=== PATIENT | male | born 1955 | race Caucasian/White ===

== ENCOUNTER 2018-03-01 20:55 | Emergency (ER) | payer BC, SELFPAY ==
[2018-03-01 21:03] VITALS: BP 119/81; PULSE 76; RESP 16; TEMP 37.2; O2SAT 96; BMI 22.9
--- NOTE | 2018-03-01 21:55 | PC.NURSE ---
pt reports passing a kidney stone on friday. since then pt experiencing increasing full body aches that are worse at night. reports it feels like someone is stabbing me in the shoulders with a knife and having a hard time sleeping. Pt denies fever, N/V/D, night sweats, LOC.
[2018-03-01 22:19] LABS: Bacteria Urine Few (2-10); RBC Urine 0-1/HPF (0-5/HPF); Squamous Epithelial Cell Urine 0-1 /HPF; WBC Urine 1-5/HPF (0-5/HPF)
[2018-03-01 22:20] LABS: Calcium Oxalate Crystals Urine Occasional; Mucus Urine 1+ (Negative)
[2018-03-01 22:22] LABS: Culture Indicated Urine Cult Not Indicated
[2018-03-01 22:25] VITALS: BP 114/71; PULSE 75; RESP 16; O2SAT 98
[2018-03-01 22:39] LABS: Add Manual Diff / Slide Review NO; Basophils Percent Auto 0.6 % (0-2); Hematocrit 38.5 % (41-53); Hemoglobin 13.2 g/dL (13.5-17.5); Lymphocytes Percent Auto 19.4 % (25-40); Mean Corpuscular HGB Conc 34.3 % (30-36); Mean Corpuscular Hemoglobin 32.8 PG (26-34); Mean Corpuscular Volume 95.8 fL (80-100); Monocytes Percent Auto 8.5 % (3-14); Neutrophils Absolute Auto 5300 /uL (3000-5900); Neutrophils Percent Auto 68.5 % (50-75); Platelet Count 351 X10^3/uL (150-400); Red Blood Cell Count 4.02 X10^6/uL (4.5-5.9); Red Cell Distribution Width 13.9 % (11.6-14.8); White Blood Cell Count 7.7 X10^3/uL (4.5-11.0)
[2018-03-01 22:49] LABS: Alanine Aminotransferase 202 IU/L (21-72); Albumin 3.4 g/dL (3.5-5.0); Albumin Globulin Ratio 1.3 (1.0-2.8); Alkaline Phosphatase 85 U/L (38-126); Aspartate Aminotransferase 163 IU/L (17-59); BUN Creatinine Ratio 27.5 (6-22); Bilirubin Total 0.3 mg/dL (0.2-1.3); Blood Urea Nitrogen 22 mg/dL (9-20); Calcium 8.8 mg/dL (8.4-10.2); Carbon Dioxide 28 mmol/L (22-32); Chloride 105 mmol/L (98-107); Estimated Glomerular Filt Rate > 60.0 mL/min (>60); Globulin 2.6 g/dL (1.7-4.1); Glucose 104 mg/dL (80-110); HEMOLYSIS < 15 (0-50); Potassium 4.1 mmol/L (3.4-5.1); Sodium 139 mmol/L (137-145)
--- NOTE | 2018-03-01 23:07 | ED_ITS ---
HPI - Male Genitourinary General Chief complaint: Urogenital-Male Stated complaint: STATES SUDDEN ONSET JOINT PAIN ALL OVER Time Seen by Provider: 03/01/18 22:36 Source: patient Mode of arrival: ambulatory Limitations: no limitations History of Present Illness HPI Narrative: The patient is a 63-year-old male who presents with overall body aches for the last 4 days. As he has been taking 2 Tylenol and ibuprofen twice a day for the last 2 days it does not seem to be helping. He denies any back pain abdominal pain nausea vomiting cough or painful urination. He states that he did have a kidney stone and passed it February 04. He overall was better from that. He was up in the [place]. He denies any rashes no tick bites, no documented fever. He does have a mild headache but no neck pain Related Data Previous Rx's Medication Instructions Recorded ketoconazole 2 % TOPICAL BID #25 gm 08/11/17 Allergies Allergy/AdvReac Type Severity Reaction Status Date / Time latex [LATEX] Allergy Mild Verified 03/01/18 21:09 Review of Systems Review of Systems All systems reviewed & are unremarkable except as noted in HPI and below Constitutional Reports body ache(s), Denies chills, Reports fatigue, Denies fever(s), Reports malaise, Denies night sweats and Denies poor appetite Eyes Denies change in vision, Denies eye discharge, Denies irritation and Denies loss of vision ENT Ears, Nose, Mouth, and Throat: Denies change in voice, Denies neck pain and Denies sore throat Cardiovascular Denies chest pain, Denies irregular heart rhythm, Denies lightheadedness, Denies palpitations, Denies dyspnea, Denies dyspnea on exertion and Denies orthopnea Respiratory Denies cough, Denies dyspnea, Denies dyspnea on exertion and Denies wheezing Gastrointestinal Gastrointestinal: Denies abdominal pain, Denies change in bowel habits, Denies diarrhea, Denies nausea and Denies vomiting Genitourinary Denies hematuria, Denies flank pain, Denies urinary incontinence and Denies urinary urgency Musculoskeletal Reports as per HPI and Denies neck pain Integumentary/Breasts Denies pruritus, Denies erythema, Denies rash and Denies wounds Neurologic Denies loss of vision Endocrine Reports fatigue and Denies palpitations Allergic/Immunologic Denies wheezing [facility] Medical History GERD (gastroesophageal reflux disease) (Chronic) Hearing deficit (Chronic) Hearing loss (Chronic ~195) Rosacea (Chronic) Skin cancer (Chronic ~1989) Measles (Resolved) Surgical History History of back surgery (Chronic) Status post knee surgery (06/03/16) Family History Brother Age: 65 Diabetes mellitus Grandfather Cancer Grandmother MS (multiple sclerosis) Father No problems noted. Mother No problems noted. Social History marital status: Smoking Status: Never smoker alcohol intake: never substance use type: does not use Exam Initial Vital Signs Initial Vital Signs: Vital Signs Temperature 98.9 F 03/01/18 21:03 Pulse Rate 76 03/01/18 21:03 Respiratory Rate 16 03/01/18 21:03 Blood Pressure 119/81 H 03/01/18 21:03 Pulse Oximetry 96 03/01/18 21:03 Const General: cooperative, healthy appearing, comfortable and No acute distress Orientation: alert, awake and oriented x3 HENMT Head: normal to inspection and normocephalic Nose: external nose normal Face and sinus: normal facial exam Eyes General: appearance normal, both eyes and all related structures Pupils: PERRL EOM: EOM intact bilaterally Neck Neck: normal visual inspection, trachea midline, No lymphadenopathy, No midline deformity and No JVD Chest Chest: normal inspection of the chest Resp Effort & Inspection: normal respiratory effort Auscultation: clear to auscultation bilaterally, no egophony, no rales, no rhonchi and no wheezes Cardio Rate: regular rate Rhythm: regular rhythm Heart Sounds: S1 normal and S2 normal GI Inspection: non-distended Palpation: soft, no hepatosplenomegaly, No guarding, No pulsatile mass and No tender Auscultation: normal bowel sounds Back/Spine/Pelvis Back: normal to inspection Skin General: no rashes or lesions noted, No ecchymosis, No petechiae, No purpura and No pallor Neuro General: alert, awake and oriented x3 Cranial Nerves: CN's II-XI intact bilaterally Speech: speech normal Gait: normal gait Extrem General: normal to inspection and full ROM Right upper extremity: normal to inspection Left upper extremity: normal to inspection Right lower extremity: normal to inspection Left lower extremity: normal to inspection Course Orders Ordered: ED Orders 03/01/18 22:03 Acetaminophen Stat Lactate (Lactic Acid) Stat Salicylate Stat 03/01/18 22:08 Urine Microscopic Stat 03/01/18 22:30 CMP [Comprehensive Metabolic Panel] Stat Complete Blood Count AUTO DIFF Stat 03/01/18 22:33 Monotest Stat Procalcitonin Stat 03/01/18 23:27 Blood Culture Stat 03/02/18 00:10 US abdomen complete Stat Discontinued Medications Sodium Chloride (Normal Saline 0.9%) 1,000 mls @ 1,000 mls/hr IV BOLUS ONE Stop: 03/02/18 00:06 Last Infusion: 03/02/18 01:35 Dose: 0 mls/hr Admin: 03/01/18 23:46 Dose: 1,000 mls/hr Ketorolac Tromethamine (Toradol) 30 mg IV NOW ONE Stop: 03/01/18 23:45 Last Admin: 03/01/18 23:47 Dose: 30 mg Vital Signs - 8 hr 03/01/18 22:25 03/02/18 01:40 Temperature 98.0 F Pulse Rate 75 55 L Respiratory Rate 16 18 Blood Pressure 122/92 H Blood Pressure [Left Arm] 114/71 Pulse Oximetry 98 97 MDM - Male Genitourinary Medical Records Attestation: I reviewed the patient's medical records. Lab Data Attestation: I reviewed the patient's lab results. Result diagrams: 03/01/18 22:30 03/01/18 22:30 Lab Results 03/01/18 03/01/18 03/01/18 Range/Units 22:03 22:03 22:08 WBC (4.5-11.0) X10^3/uL RBC (4.5-5.9) X10^6/uL Hgb (13.5-17.5) g/dL Hct (41-53) % MCV (80-100) fL MCH (26-34) PG MCHC (30-36) % RDW (11.6-14.8) % Plt Count (150-400) X10^3/uL Neut % (Auto) (50-75) % Lymph % (Auto) (25-40) % Pickett % (Auto) (3-14) % Eos % (Auto) (2-4) % Baso % (Auto) (0-2) % Neut # (Auto) (3972-5825) /uL Sodium (137-145) mmol/L Potassium (3.4-5.1) mmol/L Chloride (98-107) mmol/L Carbon Dioxide (22-32) mmol/L BUN (9-20) mg/dL Creatinine (0.66-1.25) mg/dL Estimated GFR (>60) mL/min BUN/Creatinine Ratio (6-22) Glucose (80-110) mg/dL Lactate 0.7 (0.7-2.1) mmol/L Calcium (8.4-10.2) mg/dL Total Bilirubin (0.2-1.3) mg/dL AST (17-59) IU/L ALT (21-72) IU/L Alkaline Phosphatase (38-126) U/L Total Protein (6.3-8.2) g/dL Albumin (3.5-5.0) g/dL Globulin (1.7-4.1) g/dL Albumin/Globulin Ratio (1.0-2.8) Procalcitonin (<0.5) ng/mL Urine RBC 0-1/hpf (0-5/HPF) Urine WBC 1-5/hpf (0-5/HPF) Ur Squamous Epith Cells 0-1 /hpf Calcium Oxalate Crystal Occasional H (None) Urine Bacteria Few (2-10) H (None) Urine Mucus 1+ H (Negative) Ur Culture Indicated? Cult not indicated Micro UA Comment Not Reportable Salicylates < 1.0 (<20) mg/dL Acetaminophen < 10 L (10-30) ug/mL Monoscreen (Negative) 03/01/18 03/01/18 03/01/18 Range/Units 22:30 22:30 22:33 WBC 7.7 (4.5-11.0) X10^3/uL RBC 4.02 L (4.5-5.9) X10^6/uL Hgb 13.2 L (13.5-17.5) g/dL Hct 38.5 L (41-53) % MCV 95.8 (80-100) fL MCH 32.8 (26-34) PG MCHC 34.3 (30-36) % RDW 13.9 (11.6-14.8) % Plt Count 351 (150-400) X10^3/uL Neut % (Auto) 68.5 (50-75) % Lymph % (Auto) 19.4 L (25-40) % Pickett % (Auto) 8.5 (3-14) % Eos % (Auto) 3.0 (2-4) % Baso % (Auto) 0.6 (0-2) % Neut # (Auto) 5300 (8650-2349) /uL Sodium 139 (137-145) mmol/L Potassium 4.1 (3.4-5.1) mmol/L Chloride 105 (98-107) mmol/L Carbon Dioxide 28 (22-32) mmol/L BUN 22 H (9-20) mg/dL Creatinine 0.80 (0.66-1.25) mg/dL Estimated GFR > 60.0 (>60) mL/min BUN/Creatinine Ratio 27.5 H (6-22) Glucose 104 (80-110) mg/dL Lactate (0.7-2.1) mmol/L Calcium 8.8 (8.4-10.2) mg/dL Total Bilirubin 0.3 (0.2-1.3) mg/dL AST 163 H (17-59) IU/L ALT 202 H (21-72) IU/L Alkaline Phosphatase 85 (38-126) U/L Total Protein 6.0 L (6.3-8.2) g/dL Albumin 3.4 L (3.5-5.0) g/dL Globulin 2.6 (1.7-4.1) g/dL Albumin/Globulin Ratio 1.3 (1.0-2.8) Procalcitonin < 0.05 (<0.5) ng/mL Urine RBC (0-5/HPF) Urine WBC (0-5/HPF) Ur Squamous Epith Cells Calcium Oxalate Crystal (None) Urine Bacteria (None) Urine Mucus (Negative) Ur Culture Indicated? Micro UA Comment Salicylates (<20) mg/dL Acetaminophen (10-30) ug/mL Monoscreen Negative (Negative) Imaging Data US - abdomen: Radiologist's impression: No acute finding left nephrolithiasis. No hydronephrosis. Gallbladder: Distended no stones non thickened wall no karlene cholecystic fluid MDM Narrative Medical decision making narrative: The patient has overall body aches and joints for the last 4 days, no documented fever but he has been taking Tylenol and ibuprofen as prescribed. Only abnormality is elevated liver enzymes. Tylenol level is negative and it sounds as though he has been taking Tylenol appropriately. He has no right upper quadrant pain. Ultrasound is negative gallbladder is within normal limits bilirubin is negative. No leukocytosis no elevated lactate or procalcitonin. Pickett screen negative. She is worried about Lyme disease. He denies ever being bit by a tick there was never any rash. At this time I recommend supportive care and close outpatient follow-up with repeat liver enzymes. I discussed all findings with the patient, Education has been performed regarding treatment plan, diagnosis, warning signs and symptoms and all concerns have been addressed. Verbally agree with and understood all of the above. Discharge Plan Departure Patient Disposition: Home, Self-Care Clinical Impression: Acute viral syndrome, Elevated liver enzymes, Joint pain Discharge Date/Time: 03/02/18 01:41 Interventions: ED Discharge Assessment Last Done: 03/02/18 01:40 Instructions: DI for Viral Syndrome Activity Restrictions/Additional Instructions: *You have been diagnosed with viral syndrome, joint pain, elevated liver enzymes *What to do: Need to have liver enzymes rechecked this week with primary care provider. May also require more testing and evaluation of joint pain. At this time no antibiotics or a bacterial infection identified. *Continue to take medications as directed -ibuprofen/Motrin/Advil 600 mg every 6 hr or 800 mg every 8 hr -avoid Tylenol/acetaminophen-this can elevated liver enzymes *Follow up with your primary care provider in 2-3 days *Return to ER if you should have increasing pain, fever more than 100.4, or any new, worsening or concerning symptoms Prescriptions: No Action ketoconazole 2 % cream 2 % Topical BID Qty: 25 RF: 1 Referrals: Anam Quiles MD [Primary Care Provider] -
[2018-03-01 23:21] LABS: Monotest Negative (Negative)
[2018-03-01 23:36] LABS: Lactate (Lactic Acid) 0.7 mmol/L (0.7-2.1)
[2018-03-01 23:37] LABS: Acetaminophen < 10 ug/mL (10-30)
[2018-03-01 23:40] LABS: Salicylate < 1.0 mg/dL (<20)
[2018-03-01 23:41] LABS: Procalcitonin < 0.05 ng/mL (<0.5)
[2018-03-01] MEDS: SODIUM CHLORIDE 0.9% 1,000 ML 1000 ML IV (23:46)
[2018-03-01] MEDS: KETOROLAC 60 MG/2 ML VIAL 30 MG IV (23:47)
--- NOTE | 2018-03-02 00:10 | DI.US.S_ITS ---
PROCEDURE: US ABDOMEN COMPLETE INDICATIONS: elevated liver enzymes, recent kidney stones TECHNIQUE: Real-time scanning was performed of the abdominal and retroperitoneal organs, with image documentation. COMPARISON: [facility], US, RENAL COMPLETE, 01/28/2013, 8:38. FINDINGS: Preliminary report by straightedge worker radiology Liver: Liver is normal in size and homogeneous in echotexture. Gallbladder: Gallbladder is clear with normal wall thickness. Biliary ducts: Intrahepatic bile ducts are non-dilated. Extrahepatic bile duct caliber measures 6 mm. Normal is 6-7 mm or less in diameter, or 10 mm or less post-cholecystectomy. Pancreas: Pancreas is obscured by bowel gas Spleen: Spleen is normal in size and homogeneous in echotexture. Kidneys: Kidneys are normal in size and echotexture. Right kidney measures 10.7 cm long; left kidney measures 10.3 cm long. No hydronephrosis. There are apparent calcifications measuring 11 mm and 14 mm in the mid and superior aspect of the left kidney. No solid masses. Right upper pole cyst on prior exams not apparent. Aorta: Visualized aorta is normal in caliber at less than 3 cm. proximal aorta is obscured. Iliacs: Iliac vessels are obscured by bowel gas IVC: Nonvisualized secondary to bowel gas Miscellaneous: No free abdominal fluid. IMPRESSION: 1. Exam is limited by degree of bowel gas present. 2. No apparent hepatobiliary abnormality. 3. Probable left nephrolithiasis. No hydronephrosis. Findings are concordant with the preliminary report. Dictated by: Flynn Jonas M.D. on 03/02/2018 at 8:24 Approved by: Flynn Jonas M.D. on 03/02/2018 at 8:30
[2018-03-02 01:40] VITALS: BP 122/92; PULSE 55; RESP 18; TEMP 36.7; O2SAT 97
== END 2018-03-02 01:41 | disposition home or self-care (01) ==
PROVIDERS: Emergency Provider Emergency Medicine; Family Provider Family Medicine; PCP Family Medicine
DX: B34.9 Viral infection, unspecified (principal); R74.8 Abnormal levels of other serum enzymes; M25.50 Pain in unspecified joint
CPT/HCPCS: 36415; 36591; 76700; 80053; 80329; 81003; 81015; 83605; 84145; 85025; 86318; 87040; 96361; 96374; 99283; 99284; G0480; J1885

== ENCOUNTER → 2018-03-04 12:30 | Outpatient (CLI) | payer BC, SELFPAY ==
[2018-03-04 14:02] LABS: Erythrocyte Sedimentation Rate 40 MM/HR (0-15)
[2018-03-04 14:09] LABS: Alanine Aminotransferase 171 IU/L (21-72); Albumin 3.8 g/dL (3.5-5.0); Albumin Globulin Ratio 1.3 (1.0-2.8); Alkaline Phosphatase 104 U/L (38-126); Aspartate Aminotransferase 77 IU/L (17-59); BUN Creatinine Ratio 18.8 (6-22); Bilirubin Total 0.4 mg/dL (0.2-1.3); Blood Urea Nitrogen 15 mg/dL (9-20); C-Reactive Protein Quant 1.2 mg/dL (<1.0); Carbon Dioxide 24 mmol/L (22-32); Chloride 106 mmol/L (98-107); Creatine Kinase 51 U/L (55-170); Estimated Glomerular Filt Rate > 60.0 mL/min (>60); Glucose 102 mg/dL (80-110); HEMOLYSIS < 15 (0-50); Sodium 139 mmol/L (137-145); Total Protein 6.8 g/dL (6.3-8.2)
[2018-03-04 14:11] LABS: Rheumatoid Factor < 8.6 IU/mL (<12.0)
[2018-03-04 16:45] LABS: Hepatitis B Surface Antigen NEGATIVE s/c (NEGATIVE)
[2018-03-04 17:06] LABS: Hep C Virus Ab w/Reflex Quant NEGATIVE s/c (NEGATIVE)
[2018-03-06 13:00] LABS: Aldolase 6.7 U/L (< 8.2)
[2018-03-06 13:59] LABS: Hepatitis B Core Antibody Nonreactive (Nonreactive)
[2018-03-06 14:01] LABS: Hepatitis B Surf Ab Qualitativ Nonreactive (Nonreactive)
[2018-03-07 01:51] LABS: ANA Screen, IFA Negative (Negative)
== END ==
PROVIDERS: Family Provider Family Medicine; PCP Family Medicine; Visit Provider Internal Medicine
DX: M79.1 Myalgia (principal); R94.5 Abnormal results of liver function studies; M25.50 Pain in unspecified joint; Z12.5 Encounter for screening for malignant neoplasm of prostate; Z13.220 Encounter for screening for lipoid disorders; Z13.1 Encounter for screening for diabetes mellitus
CPT/HCPCS: 36415; 80053; 82085; 82550; 85651; 86038; 86140; 86430; 86704; 86706; 86803; 87340

== ENCOUNTER → 2018-03-11 11:12 | Outpatient (CLI) | payer BC, SELFPAY ==
[2018-03-11 12:15] LABS: Chloride 105 mmol/L (98-107); HEMOLYSIS < 15 (0-50)
[2018-03-11 12:17] LABS: Add Manual Diff / Slide Review NO; Basophils Percent Auto 0.7 % (0-2); Eosinophils Percent Auto 0.9 % (2-4); Hematocrit 42.1 % (41-53); Hemoglobin 14.2 g/dL (13.5-17.5); Lymphocytes Percent Auto 14.1 % (25-40); Mean Corpuscular HGB Conc 33.8 % (30-36); Mean Corpuscular Hemoglobin 32.3 PG (26-34); Mean Corpuscular Volume 95.5 fL (80-100); Monocytes Percent Auto 8.2 % (3-14); Neutrophils Absolute Auto 7800 /uL (3000-5900); Neutrophils Percent Auto 76.1 % (50-75); Platelet Count 529 X10^3/uL (150-400); Red Cell Distribution Width 13.9 % (11.6-14.8); White Blood Cell Count 10.2 X10^3/uL (4.5-11.0)
[2018-03-11 12:18] LABS: Alanine Aminotransferase 289 IU/L (21-72); Albumin 4.1 g/dL (3.5-5.0); Albumin Globulin Ratio 1.5 (1.0-2.8); Alkaline Phosphatase 130 U/L (38-126); Aspartate Aminotransferase 141 IU/L (17-59); BUN Creatinine Ratio 22.5 (6-22); Bilirubin Total 0.5 mg/dL (0.2-1.3); Blood Urea Nitrogen 18 mg/dL (9-20); C-Reactive Protein Quant 1.1 mg/dL (<1.0); Calcium 9.3 mg/dL (8.4-10.2); Carbon Dioxide 24 mmol/L (22-32); Cholesterol 197 mg/dL (140-199); Estimated Glomerular Filt Rate > 60.0 mL/min (>60); Globulin 2.8 g/dL (1.7-4.1); Glucose 107 mg/dL (80-110); HDL Cholesterol 52 mg/dL (40-60); LDL Cholesterol Calculated 124 mg/dL (<100); Potassium 3.9 mmol/L (3.4-5.1); Sodium 139 mmol/L (137-145); Total Protein 6.9 g/dL (6.3-8.2); Triglycerides 104 mg/dL (35-150)
[2018-03-11 12:22] LABS: Rheumatoid Factor < 8.6 IU/mL (<12.0)
[2018-03-11 12:41] LABS: Erythrocyte Sedimentation Rate 43 MM/HR (0-15)
[2018-03-11 12:47] LABS: Prostate Specific Antigen Scrn 2.29 ng/mL (0.1-4.0); TSH w/ Reflex to FT4 0.91 uIU/mL (0.47-4.68)
[2018-03-13 13:54] LABS: CCP Antibody (IgG) < 16 Units (< 20)
== END ==
PROVIDERS: PCP Family Medicine; Visit Provider Family Medicine
DX: M25.50 Pain in unspecified joint (principal); Z12.5 Encounter for screening for malignant neoplasm of prostate; Z13.1 Encounter for screening for diabetes mellitus; Z13.220 Encounter for screening for lipoid disorders
CPT/HCPCS: 36415; 80053; 80061; 83516; 84443; 85025; 85651; 86140; 86430; G0103

== ENCOUNTER → 2018-03-18 16:02 | Outpatient (CLI) | payer BC, MEDICARE, SELFPAY ==
[2018-03-18 16:53] LABS: Alanine Aminotransferase 173 IU/L (21-72); Albumin 3.8 g/dL (3.5-5.0); Albumin Globulin Ratio 1.5 (1.0-2.8); Alkaline Phosphatase 126 U/L (38-126); Aspartate Aminotransferase 42 IU/L (17-59); Bilirubin Total 0.3 mg/dL (0.2-1.3); Bilirubin Unconjugated 0.1 mg/dL (0.0-1.1); Globulin 2.6 g/dL (1.7-4.1); HEMOLYSIS < 15 (0-50); Total Protein 6.4 g/dL (6.3-8.2)
[2018-03-18 16:57] LABS: Alanine Aminotransferase 171 IU/L (21-72); Albumin 3.8 g/dL (3.5-5.0); Albumin Globulin Ratio 1.4 (1.0-2.8); Alkaline Phosphatase 127 U/L (38-126); Aspartate Aminotransferase 43 IU/L (17-59); BUN Creatinine Ratio 26.3 (6-22); Bilirubin Total 0.3 mg/dL (0.2-1.3); Blood Urea Nitrogen 21 mg/dL (9-20); Calcium 9.8 mg/dL (8.4-10.2); Carbon Dioxide 29 mmol/L (22-32); Chloride 103 mmol/L (98-107); Estimated Glomerular Filt Rate > 60.0 mL/min (>60); Globulin 2.7 g/dL (1.7-4.1); Glucose 100 mg/dL (80-110); HEMOLYSIS < 15 (0-50); Potassium 4.7 mmol/L (3.4-5.1); Sodium 142 mmol/L (137-145); Total Protein 6.5 g/dL (6.3-8.2)
[2018-03-18 16:58] LABS: C-Reactive Protein Quant < 0.5 mg/dL (<1.0)
[2018-03-18 17:37] LABS: Erythrocyte Sedimentation Rate 36 MM/HR (0-15)
[2018-03-18 17:55] LABS: Add Manual Diff / Slide Review NO; Basophils Percent Auto 0.8 % (0-2); Eosinophils Percent Auto 0.2 % (2-4); Hematocrit 41.7 % (41-53); Hemoglobin 14.2 g/dL (13.5-17.5); Lymphocytes Percent Auto 14.2 % (25-40); Mean Corpuscular Hemoglobin 32.2 PG (26-34); Mean Corpuscular Volume 94.8 fL (80-100); Monocytes Percent Auto 7.4 % (3-14); Neutrophils Absolute Auto 8500 /uL (3000-5900); Neutrophils Percent Auto 77.4 % (50-75); Platelet Count 508 X10^3/uL (150-400); Red Cell Distribution Width 13.9 % (11.6-14.8)
[2018-03-18 17:57] LABS: White Blood Cell Count 10.9 X10^3/uL (4.5-11.0)
[2018-03-21 07:32] LABS: Ceruloplasmin 28 mg/dL (18-36)
== END ==
PROVIDERS: PCP Family Medicine; Visit Provider Internal Medicine
DX: R74.8 Abnormal levels of other serum enzymes (principal); M25.50 Pain in unspecified joint
CPT/HCPCS: 36415; 80053; 80076; 82390; 82728; 85025; 85651; 86140

== ENCOUNTER 2018-05-08 12:02 | Emergency (ER) | payer BC, SELFPAY ==
[2018-05-08 12:16] VITALS: BP 122/76; PULSE 77; RESP 20; TEMP 36.5; O2SAT 98; BMI 23.6
--- NOTE | 2018-05-08 12:44 | ED.FALL ---
HPI - Fall <Shruthi Husain PA-C - Last Filed: 05/08/18 17:58> General Chief Complaint: Trauma Stated Complaint: FELL OFF 5FT LADDER,CHEST,HEAD,RT WRIST PAIN Time Seen by Provider: 05/08/18 12:40 Source: patient Mode of arrival: ambulatory Limitations: no limitations History of Present Illness HPI Narrative: This 63-year-old male comes in from walk-in clinic due to right upper extremity and sternal pain after a fall off a ladder yesterday. He states that he was up about 5 ft on a ladder in his garage getting a cardiac down when he fell backwards. He states that he fell mainly onto his right side shoulder, hand and trunk area. He states that he does not think he hit his head and definitely did not lose consciousness. He denies headache, vision change, nausea or vomiting. He denies any pain in his neck or difficulty with movement. He states that he went to walk-in clinic due to pain in his shoulder and they sent him here. He states that right after he fell, he kind of had the wind knocked out of him and his ribs hurt, but this got better in a few minutes. He states his right shoulder was a little bit sore but mostly went about his day. Last night, the shoulder pain got worse and he had difficulty sleeping due to the pain. Today, he states that the pain in his shoulder it has persisted. He also has pain in his sternum especially noticeable with laughing, sneezing, etc. He states his hand is also sore. His 2nd and 3rd fingers feel just a little bit numb and tingly at the tips, but able to move them normally. He denies any other paresthesias in the extremities. He denies any weakness in the extremities and states that it is pain that is keeping him from movement in the right shoulder. He denies any dyspnea. He denies any bowel or bladder dysfunction since his fall. He notes that he had a clavicle fracture in childhood, does not remember for sure which side, thinks left, and that his collar bones are not symmetric at baseline. Related Data Home Medications Medication Instructions Recorded Confirmed Turmeric Curcumin 4 - 6 cap PO DAILY 05/08/18 05/08/18 methotrexate sodium See Label Instructions .ROUTE 05/08/18 05/08/18 .COMPLEX prednisone 20 mg tablet 20 mg PO DAILY 05/08/18 05/08/18 Allergies Allergy/AdvReac Type Severity Reaction Status Date / Time latex [LATEX] Allergy Mild Verified 05/08/18 12:20 Review of Systems <Shruthi Husain PA-C - Last Filed: 05/08/18 17:58> Review of Systems All systems reviewed & are unremarkable except as noted in HPI and below Exam <Shruthi Husain PA-C - Last Filed: 05/08/18 17:58> Narrative Exam Narrative: GENERAL APPEARANCE: Patient sitting comfortably, in no distress. HEENT: PERRL, EOMI, normal ear canals, nasal mucosa and oropharynx NECK: Supple LUNGS: Clear to auscultation bilaterally. CHEST: Tender to palpation through the sternum, no tenderness localized over the ribs anteriorly or laterally HEART: Rate and rhythm regular without murmur, normal S1 and S2, no S3 or S4. ABDOMEN: Soft, NT, ND, + BS x 4 quadrants NEUROLOGIC: Alert and oriented, normal speech, gait and coordination. MUSCULOSKELETAL: Full Csp AROM without any point tenderness over the cervical spine. He is somewhat tender over the midthoracic spine and paraspinal region on the right. Also tender throughout the right upper trapezius and posterior lateral right shoulder bony prominences. No tenderness over the right clavicle. The right clavicle is more prominent than the left. Limited range of motion of the right shoulder secondary to tenderness. No tenderness over the right elbow, full range of motion. No tenderness over the right upper arm or forearm, nor the wrist where he has full range of motion. He is tender over the thenar eminence on the right hand. He he has full range of motion of all of the fingers with some tenderness. DERMATOLOGIC: Bandaged abrasion noted on the right elbow. Ecchymoses noted on the right hand. No ecchymoses or abrasions on the head, neck or trunk noted. NEUROVASCULAR: Right radial and ulnar pulses 2+, sensation in the fingers is grossly intact Initial Vital Signs Initial Vital Signs: Vital Signs Temperature 97.7 F 05/08/18 12:16 Pulse Rate 77 05/08/18 12:16 Respiratory Rate 20 05/08/18 12:16 Blood Pressure 122/76 05/08/18 12:16 Pulse Oximetry 98 05/08/18 12:16 <Patrice Banerjee DO - Last Filed: 05/08/18 18:20> Initial Vital Signs Initial Vital Signs: Vital Signs Temperature 97.7 F 05/08/18 12:16 Pulse Rate 77 05/08/18 12:16 Respiratory Rate 20 05/08/18 12:16 Blood Pressure 122/76 05/08/18 12:16 Pulse Oximetry 98 05/08/18 12:16 Course <Shruthi Husain PA-C - Last Filed: 05/08/18 17:58> Additional Information: No acute fracture is found on x-rays today. Patient declines any pain medication aside from Tylenol. He was given a sling for comfort and range of motion exercises reviewed (he is very familiar with these from previous physical therapy on his shoulder). He was advised follow-up with his PCP next week and agreed to return if any worsening or new symptoms in the interim Orders Ordered: ED Orders 05/08/18 13:04 XR hand RT min 3V Stat XR shoulder RT min 2V Stat XR sternum min 2V Stat XR thoracic spine 3V Stat 05/08/18 13:19 EKG-12 Lead Stat Discontinued Medications Acetaminophen (Tylenol) 650 mg PO NOW ONE Stop: 05/08/18 13:05 Last Admin: 05/08/18 13:31 Dose: 650 mg Vital Signs - 8 hr 05/08/18 12:16 Temperature 97.7 F Pulse Rate 77 Respiratory Rate 20 Blood Pressure 122/76 Pulse Oximetry 98 <Patrice Banerjee DO - Last Filed: 05/08/18 18:20> Orders Ordered: ED Orders 05/08/18 13:04 XR hand RT min 3V Stat XR shoulder RT min 2V Stat XR sternum min 2V Stat XR thoracic spine 3V Stat 05/08/18 13:19 EKG-12 Lead Stat Discontinued Medications Acetaminophen (Tylenol) 650 mg PO NOW ONE Stop: 05/08/18 13:05 Last Admin: 05/08/18 13:31 Dose: 650 mg Vital Signs - 8 hr 05/08/18 12:16 Temperature 97.7 F Pulse Rate 77 Respiratory Rate 20 Blood Pressure 122/76 Pulse Oximetry 98 MDM - Fall <NOMAN Licea Last Filed: 05/08/18 17:58> Imaging Data thoracic: Radiologist's impression: [address] [address] XRay Report Signed Patient: Kameron JaureguiMR#: [id number] : 3At:[id number] Age/Sex: 63 / MDate of Service: 05/08/18 Loc: ED Accession Number: [id number] Procedure: XR thoracic spine 3V Ordering Provider: Shruthi Husain P.A-C PROCEDURE: XR THORACIC SPINE 3V INDICATIONS: fall yesterday, pain TECHNIQUE: 3 views of the thoracic spine were acquired. COMPARISON: None. FINDINGS: Bones: On the lateral views, the cervicothoracic junction is adequately visualized and the alignment through this region is within normal limits. The vertebral body heights are within normal limits throughout the thoracic spine without evidence to suggest acute compression fracture. The bone mineralization is within normal limits. Mild to moderate degenerative changes of the thoracic spine are evident with areas of disc height loss and disc osteophyte complexes. Soft tissues: The imaged overlying soft tissues of the chest are within normal limits. However, there may be calcification involving the left kidney. IMPRESSION: Degenerative changes of the thoracic spine without acute fracture evident. Dictated by: Fredo Rush M.D. on 05/08/2018 at 13:12 Approved by: Fredo Rush M.D. on 05/08/2018 at sternum: Radiologist's impression: [address] [address] XRay Report Signed Patient: Kameron JaureguiMR#: [id number] : 3Acct:[id number] Age/Sex: 63 / MDate of Service: 05/08/18 Loc: ED Accession Number: [id number] Procedure: XR sternum min 2V Ordering Provider: Shruthi Husain P.A-C PROCEDURE: XR STERNUM MIN 2V INDICATIONS: pain TECHNIQUE: 2 views of the sternum acquired. COMPARISON: None. FINDINGS: Bones: No displaced sternal fractures are evident. Bone mineralization is within normal limits. The sternoclavicular joints are not well-seen. The proximal clavicles are within normal limits. Soft tissues: Retrosternal soft tissues appear normal. IMPRESSION: No displaced sternal fractures. Dictated by: Fredo Rush M.D. on 05/08/2018 at 13:13 Approved by: Fredo Rush M.D. on 05/08/2018 at 13:14 shoulder: Radiologist's impression: Kameron Jauregui - Patient Chart Chart Viewer Diagnostics DATE TYPE STATUS AUTHOR Hx 05/08/18 13:04 Fredo Rush 05/08/18 13:04 Fredo Rush 05/08/18 13:04 Fredo Rush 05/08/18 13:04 Fredo Rush 03/02/18 00:10 Flynn Jonas Timothy Ward 63, M1955 REG ER, ED - Main ED: R02 177.8cm 74.843kg BSA: 1.92m? BMI: 23.7kg/m? Trauma Search Chart NF - Not included in interaction checking latex (LATEX) ONSET 11/16/14 Today 12:[address] [address] XRay Report Signed Patient: Kameron JaureguiMR#: [id number] : 1955cct:[id number] Age/Sex: 63 / MDate of Service: 05/08/18 Loc: ED Accession Number: [id number] Procedure: XR shoulder RT min 2V Ordering Provider: Shruthi Husain P.A-C PROCEDURE: XR SHOULDER RT MIN 2V INDICATIONS: fall yesterday, pain, reduced ROM TECHNIQUE: 3 views of the shoulder were acquired. COMPARISON: None. FINDINGS: Bones: No fractures or dislocations. No suspicious bony lesions. Visualized ribs appear intact. There are at least mild degenerative changes of the common clavicular joint. Soft tissues: No suspicious soft tissue calcifications. IMPRESSION: No acute osseous abnormality of the right shoulder. Dictated by: Fredo Rush M.D. on 05/08/2018 at 13:09 Approved by: Fredo Rush M.D. on 05/08/2018 at 13:12 hand: Radiologist's impression: [address] [address] XRay Report Signed Patient: Kameron JaureguiMR#: [id number] : 1955cct:[id number] Age/Sex: 63 / MDate of Service: 05/08/18 Loc: ED Accession Number: [id number] Procedure: XR hand RT min 3V Ordering Provider: Shruthi Husain P.A-C PROCEDURE: XR HAND RT MIN 3V INDICATIONS: fall, pain TECHNIQUE: 3 views of the hand(s) acquired. COMPARISON: None. FINDINGS: Bones: No fractures or dislocations. Carpal bones are normally aligned. No suspicious bony lesions. Soft tissues: No suspicious soft tissue calcifications. IMPRESSION: No displaced fractures of the right hand. Dictated by: Fredo Rush M.D. on 05/08/2018 at 13:07 Approved by: Fredo Rush M.D. on 05/08/2018 at 13:08 ECG Data Attestation: I personally reviewed and interpreted this ECG as follows: (Sinus bradycardia rate 59, normal axis) Discharge Plan Departure Patient Disposition: Home Clinical Impression: Contusion of multiple sites of right arm, Contusion of back wall of thorax Discharge Date/Time: 05/08/18 15:24 Interventions: ED Discharge Assessment Last Done: 05/08/18 15:23 Instructions: DI for Sternum Contusion, DI for Shoulder Sprain Activity Restrictions/Additional Instructions: Please return as we talked about if you have any acutely worsening symptoms over the weekend, or new symptoms such as headache, vision change, vomiting, or weakness in your extremities. You can wear the sling as needed for comfort, but please make sure to remove it several times daily and do the gentle bwurz-al-zefane exercises that we talked about such as pendulum and wall walking. Please take Tylenol 8 hr or arthritis strength (extended release acetaminophen, 650 mg) every 8 hr to help with pain. Please follow-up with your PCP next week to determine whether any further studies are needed depending upon your progress by that time. Prescriptions: No Action prednisone 20 mg tablet 20 mg PO DAILY RF: 0 methotrexate sodium 2.5 mg tablet See Label Instructions .ROUTE .COMPLEX RF: 0 Turmeric Curcumin 4 - 6 cap PO DAILY RF: 0 Referrals: Anam Quiles MD [Primary Care Provider] - <Patrice Banerjee DO - Last Filed: 05/08/18 18:20> Cosign ED Attending Cosignature Attestation: I was available for consultation during this patient's emergency department encounter
--- NOTE | 2018-05-08 13:04 | DI.RAD.S_ITS ---
PROCEDURE: XR HAND RT MIN 3V INDICATIONS: fall, pain TECHNIQUE: 3 views of the hand(s) acquired. COMPARISON: None. FINDINGS: Bones: No fractures or dislocations. Carpal bones are normally aligned. No suspicious bony lesions. Soft tissues: No suspicious soft tissue calcifications. IMPRESSION: No displaced fractures of the right hand. Dictated by: Fredo Rush M.D. on 05/08/2018 at 13:07 Approved by: Fredo Rush M.D. on 05/08/2018 at 13:08
--- NOTE | 2018-05-08 13:04 | DI.RAD.S_ITS ---
PROCEDURE: XR SHOULDER RT MIN 2V INDICATIONS: fall yesterday, pain, reduced ROM TECHNIQUE: 3 views of the shoulder were acquired. COMPARISON: None. FINDINGS: Bones: No fractures or dislocations. No suspicious bony lesions. Visualized ribs appear intact. There are at least mild degenerative changes of the common clavicular joint. Soft tissues: No suspicious soft tissue calcifications. IMPRESSION: No acute osseous abnormality of the right shoulder. Dictated by: Fredo Rush M.D. on 05/08/2018 at 13:09 Approved by: Fredo Rush M.D. on 05/08/2018 at 13:12
--- NOTE | 2018-05-08 13:04 | DI.RAD.S_ITS ---
PROCEDURE: XR STERNUM MIN 2V INDICATIONS: pain TECHNIQUE: 2 views of the sternum acquired. COMPARISON: None. FINDINGS: Bones: No displaced sternal fractures are evident. Bone mineralization is within normal limits. The sternoclavicular joints are not well-seen. The proximal clavicles are within normal limits. Soft tissues: Retrosternal soft tissues appear normal. IMPRESSION: No displaced sternal fractures. Dictated by: Fredo Rush M.D. on 05/08/2018 at 13:13 Approved by: Fredo Rush M.D. on 05/08/2018 at 13:14
--- NOTE | 2018-05-08 13:04 | DI.RAD.S_ITS ---
PROCEDURE: XR THORACIC SPINE 3V INDICATIONS: fall yesterday, pain TECHNIQUE: 3 views of the thoracic spine were acquired. COMPARISON: None. FINDINGS: Bones: On the lateral views, the cervicothoracic junction is adequately visualized and the alignment through this region is within normal limits. The vertebral body heights are within normal limits throughout the thoracic spine without evidence to suggest acute compression fracture. The bone mineralization is within normal limits. Mild to moderate degenerative changes of the thoracic spine are evident with areas of disc height loss and disc osteophyte complexes. Soft tissues: The imaged overlying soft tissues of the chest are within normal limits. However, there may be calcification involving the left kidney. IMPRESSION: Degenerative changes of the thoracic spine without acute fracture evident. Dictated by: Fredo Rush M.D. on 05/08/2018 at 13:12 Approved by: Fredo Rush M.D. on 05/08/2018 at 13:13
[2018-05-08] MEDS: ACETAMINOPHEN 325 MG TABLET 650 MG PO (13:31)
== END 2018-05-08 15:24 | disposition home or self-care (01) ==
PROVIDERS: Emergency Provider Internal Medicine; Family Provider Family Medicine; PCP Family Medicine
DX: S40.021A Contusion of right upper arm, initial encounter (principal); S20.229A Contusion of unspecified back wall of thorax, initial encounter; W11.XXXA Fall on and from ladder, initial encounter
CPT/HCPCS: 71120; 72072; 73030; 73130; 93005; 93010; 99282; 99284

== ENCOUNTER → 2018-09-10 11:35 | Outpatient (CLI) | payer BC, SELFPAY ==
[2018-09-10 12:00] LABS: Add Manual Diff / Slide Review NO; Basophils Absolute Auto 100 /uL (0-100); Basophils Percent Auto 0.7 % (0-2); Eosinophils Absolute Auto 100 /uL (0-450); Eosinophils Percent Auto 1.1 % (2-4); Hematocrit 45.8 % (41-53); Lymphocytes Absolute Auto 2500 /uL (1100-4500); Lymphocytes Percent Auto 29.6 % (25-40); Mean Corpuscular HGB Conc 32.8 % (30-36); Mean Corpuscular Hemoglobin 31.8 PG (26-34); Mean Corpuscular Volume 96.8 fL (80-100); Monocytes Absolute Auto 800 /uL (0-900); Neutrophils Absolute Auto 4800 /uL (1500-7000); Neutrophils Percent Auto 58.6 % (50-75); Platelet Count 393 X10^3/uL (150-400); Red Blood Cell Count 4.73 X10^6/uL (4.5-5.9); Red Cell Distribution Width 14.4 % (11.6-14.8); White Blood Cell Count 8.3 X10^3/uL (4.5-11.0)
[2018-09-10 12:22] LABS: Erythrocyte Sedimentation Rate 6 MM/HR (0-15)
[2018-09-10 12:25] LABS: Alanine Aminotransferase 51 IU/L (21-72); Albumin 4.1 g/dL (3.5-5.0); Albumin Globulin Ratio 1.5 (1.0-2.8); Alkaline Phosphatase 64 U/L (38-126); Aspartate Aminotransferase 32 IU/L (17-59); Bilirubin Total 0.5 mg/dL (0.2-1.3); Blood Urea Nitrogen 15 mg/dL (9-20); Calcium 9.3 mg/dL (8.4-10.2); Carbon Dioxide 27 mmol/L (22-32); Chloride 102 mmol/L (98-107); Estimated Glomerular Filt Rate > 60.0 mL/min (>60); Globulin 2.8 g/dL (1.7-4.1); Glucose 93 mg/dL (80-110); HEMOLYSIS < 15 (0-50); Potassium 4.1 mmol/L (3.4-5.1); Sodium 138 mmol/L (137-145); Total Protein 6.9 g/dL (6.3-8.2)
[2018-09-10 12:26] LABS: C-Reactive Protein Quant < 0.5 mg/dL (<1.0)
== END ==
PROVIDERS: PCP Family Medicine; Visit Provider Family Medicine
DX: M35.3 Polymyalgia rheumatica (principal)
CPT/HCPCS: 36415; 80053; 85025; 85651; 86140

== ENCOUNTER → 2018-09-23 14:43 | Outpatient (CLI) | payer BC, SELFPAY ==
--- NOTE | 2018-09-23 | DI.MRI.S_ITS ---
PROCEDURE: MR SHOULDER RT WO CON INDICATIONS: BURSITIS OF RIGHT SHOULDER TECHNIQUE: Noncontrast oblique coronal T2 fast spin echo with fat saturation, oblique sagittal T1 spin echo and T2 fast spin echo with fat saturation, axial T1 spin echo and T2 fast spin echo with fat saturation through the shoulder. COMPARISON: None. FINDINGS: Image quality: Diagnostic. Rotator cuff: Irregular moderate grade partial-thickness tearing is identified involving the anterior to mid fibers of the distal supraspinatus tendon near the level of the footprint. An irregular small full-thickness component is difficult to exclude. Edema extending upon the myotendinous junction is suggestive of a delaminating/interstitial partial-thickness tear. Thickening and increased signal involving the distal infraspinatus tendon is present without significant tearing. The subscapularis and teres minor tendons are intact. Bones and bursae: No acute fracture, dislocation, or suspicious osseous lesion is identified involving the osseous structures of the right shoulder. There are at least mild degenerative changes of the glenohumeral joint. Moderate degenerative changes of the acromioclavicular joint are present. There is a small glenohumeral joint effusion. A small amount of fluid is contained within the subacromial subdeltoid bursa. Capsule and soft tissues: Evaluation of the labrum and glenohumeral ligaments is difficult without intra-articular contrast. However, there is a small superior labral tear identified extending from approximately the 10 o'clock to the 2 o'clock position. No detached fragments or large para labral cysts are evident. The long head of the biceps tendon is intact and otherwise within normal limits. No acute injuries are suspected involving the glenohumeral ligaments. IMPRESSION: 1. Irregular moderate grade interstitial/delaminating partial-thickness tearing of the distal supraspinatus tendon with corresponding moderate tendinopathy. 2. Moderate infraspinatus tendinopathy. 3. Moderate degenerative changes of the acromioclavicular joint. Please correlate clinically to exclude subacromial impingement. 4. Subacromial subdeltoid bursal fluid may represent bursitis. 5. Small superior labral tear. 6. Mild degenerative changes of the glenohumeral joint. Dictated by: Fredo Rush M.D. on 09/23/2018 at 15:25 Approved by: Fredo Rush M.D. on 09/23/2018 at 15:30
== END ==
PROVIDERS: PCP Family Medicine; Visit Provider Orthopaedic Surgery
DX: M75.51 Bursitis of right shoulder (principal); M75.111 Incomplete rotator cuff tear or rupture of right shoulder, not specified as traumatic; M19.011 Primary osteoarthritis, right shoulder; S43.491A Other sprain of right shoulder joint, initial encounter
CPT/HCPCS: 73221

== ENCOUNTER → 2018-12-28 10:23 | Outpatient (CLI) | payer BC, SELFPAY ==
[2018-12-28 12:09] LABS: Alanine Aminotransferase 39 IU/L (21-72); Albumin 3.8 g/dL (3.5-5.0); Albumin Globulin Ratio 1.6 (1.0-2.8); Alkaline Phosphatase 54 U/L (38-126); Aspartate Aminotransferase 26 IU/L (17-59); Bilirubin Total 0.6 mg/dL (0.2-1.3); Blood Urea Nitrogen 18 mg/dL (9-20); Calcium 9.3 mg/dL (8.4-10.2); Carbon Dioxide 29 mmol/L (22-32); Chloride 103 mmol/L (98-107); Cholesterol 234 mg/dL (140-199); Estimated Glomerular Filt Rate > 60.0 mL/min (>60); Globulin 2.4 g/dL (1.7-4.1); Glucose 94 mg/dL (80-110); HDL Cholesterol 70 mg/dL (40-60); HEMOLYSIS < 15 (0-50); LDL Cholesterol Calculated 139 mg/dL (<100); Sodium 138 mmol/L (137-145); Total Protein 6.2 g/dL (6.3-8.2); Triglycerides 125 mg/dL (35-150)
[2018-12-28 12:10] LABS: Add Manual Diff / Slide Review NO; Basophils Absolute Auto 0 /uL (0-100); Basophils Percent Auto 0.2 % (0-2); Eosinophils Absolute Auto 0 /uL (0-450); Eosinophils Percent Auto 0.5 % (2-4); Hematocrit 43.8 % (41-53); Hemoglobin 15.8 g/dL (13.5-17.5); Lymphocytes Absolute Auto 1200 /uL (1100-4500); Lymphocytes Percent Auto 13.9 % (25-40); Mean Corpuscular HGB Conc 36.1 % (30-36); Mean Corpuscular Hemoglobin 36.9 PG (26-34); Mean Corpuscular Volume 102.3 fL (80-100); Monocytes Absolute Auto 500 /uL (0-900); Monocytes Percent Auto 5.8 % (3-14); Neutrophils Absolute Auto 7100 /uL (1500-7000); Neutrophils Percent Auto 79.6 % (50-75); Platelet Count 313 X10^3/uL (150-400); Red Blood Cell Count 4.28 X10^6/uL (4.5-5.9); Red Cell Distribution Width 14.3 % (11.6-14.8); White Blood Cell Count 8.9 X10^3/uL (4.5-11.0)
[2018-12-28 12:33] LABS: Prostate Specific Antigen Scrn 2.06 ng/mL (0.1-4.0)
[2018-12-28 12:36] LABS: Erythrocyte Sedimentation Rate 1 MM/HR (0-15)
[2018-12-28 12:42] LABS: Thyroid Stimulating Hormone 1.53 uIU/mL (0.47-4.68)
== END ==
PROVIDERS: PCP Family Medicine; Visit Provider Family Medicine
DX: M35.3 Polymyalgia rheumatica (principal); Z12.5 Encounter for screening for malignant neoplasm of prostate; Z13.6 Encounter for screening for cardiovascular disorders
CPT/HCPCS: 36415; 80053; 80061; 84443; 85025; 85651; G0103

== ENCOUNTER → 2019-04-02 10:17 | Outpatient (CLI) | payer BC, SELFPAY ==
[2019-04-02 11:37] LABS: Erythrocyte Sedimentation Rate 1 MM/HR (0-15)
[2019-04-02 11:48] LABS: C-Reactive Protein Quant < 0.5 mg/dL (<1.0)
== END ==
PROVIDERS: PCP Family Medicine; Visit Provider Family Medicine
DX: M35.3 Polymyalgia rheumatica (principal)
CPT/HCPCS: 36415; 85651; 86140

== ENCOUNTER 2019-08-26 22:45 | Emergency (ER) | payer BC, SELFPAY ==
[2019-08-26 22:57] VITALS: BP 131/75; PULSE 73; RESP 25; TEMP 36.8; O2SAT 99; BMI 23.8
--- NOTE | 2019-08-26 23:09 | ED.GENADULT ---
HPI - General Adult General Chief complaint: Abdominal Pain Stated complaint: states kidney stone Time Seen by Provider: 08/26/19 23:01 Source: patient and family Mode of arrival: Ambulatory Limitations: no limitations History of Present Illness HPI narrative: 64-year-old male here for evaluation of left-sided flank pain. Patient states that his symptoms started earlier today. He has had a prior history kidney stones. He states that it feels like kidney stone. No fever. No blood in his urine. No problems urinating. Has was passed all of his kidney stones on his own. Did take a oxycodone/acetaminophen prior to arrival without any improvement. Related Data Home Medications Medication Instructions Recorded Confirmed Turmeric Curcumin 4 - 6 cap PO DAILY 05/08/18 04/27/19 Previous Rx's Medication Instructions Recorded prednisone 2.5 mg tablet 7.5 mg PO DAILY #180 tab 01/06/19 triamcinolone acetonide 0.1 % 1 applictn TOP BID #30 gram 01/06/19 topical cream prednisone 1 mg tablet See Rx Instructions PO DAILY #270 06/21/19 tab acetaminophen-codeine 1 tab PO Q4-6H PRN #10 tab 08/27/19 [Tylenol-Codeine #3] ondansetron 4 mg PO Q6H PRN #7 tab 08/27/19 Allergies Allergy/AdvReac Type Severity Reaction Status Date / Time latex [LATEX] Allergy Mild Verified 08/26/19 22:57 methotrexate Allergy Verified 08/26/19 22:57 Review of Systems Constitutional Constitutional: Denies fatigue and Denies headache(s) ENT Ears, Nose, Mouth, and Throat: Denies vertigo and Denies headache(s) Cardiovascular Cardiovascular: Denies chest pain, Denies palpitations and Denies dyspnea Respiratory Respiratory: Denies dyspnea Gastrointestinal Gastrointestinal: Reports abdominal pain, Denies change in stool character, Reports nausea and Denies vomiting Genitourinary Genitourinary: Denies hematuria, Denies dysuria and Reports flank pain Musculoskeletal Musculoskeletal: Denies myalgias and Denies arthralgias Integumentary/Breasts Skin/Breast: Denies lesions and Denies rash Neurologic Neurologic: Denies vertigo and Denies headache(s) Endocrine Endocrine: Denies fatigue and Denies palpitations Hematologic/Lymphatic Hematologic/Lymphatic: Denies easy bleeding and Denies easy bruising Patient History Medical History GERD (gastroesophageal reflux disease) (Chronic) Hearing deficit (Chronic) Hearing loss (Chronic ~195) Hx of fracture of clavicle (Resolved) Measles (Resolved) PMR (polymyalgia rheumatica) (Chronic) Rosacea (Chronic) Skin cancer (Chronic ~1989) Surgical History History of back surgery (Chronic) Status post knee surgery (06/03/16) Social History marital status: Smoking Status: Never smoker alcohol intake: never substance use type: does not use Smoking Status: Never smoker alcohol intake frequency: 0-2 drinks per day Substance Use Type: does not use Exam Initial Vital Signs Initial Vital Signs: Vital Signs Temperature 98.2 F 08/26/19 22:57 Pulse Rate 73 08/26/19 22:57 Respiratory Rate 25 H 08/26/19 22:57 Blood Pressure 131/75 08/26/19 22:57 Pulse Oximetry 99 08/26/19 22:57 Const General: cooperative Limitations: mental status not altered HENMT Head: normal to inspection and normocephalic Resp Effort & Inspection: normal respiratory effort and tachypneic Auscultation: clear to auscultation bilaterally Cardio Rate: regular rate Rhythm: regular rhythm GI Inspection: non-distended Palpation: soft, No firm and No tender Back/Spine/Pelvis Back: No CVA tenderness Skin Lesions: no lesions Rashes: no rashes Neuro General: alert and awake Cognition: normal cognition Speech: speech normal Extrem General: normal to inspection and capillary refill normal Course Orders Ordered: ED Orders 08/26/19 22:53 Basic Metabolic Panel Stat Complete Blood Count AUTO DIFF Stat 08/27/19 00:00 CT kidney ureter bladder (KUB) Stat 08/27/19 00:45 Urinalysis and Microscopic Stat Urine Culture Stat Discontinued Medications Acetaminophen/Codeine Phosphate (Tylenol #3 Prepack) 1 bottle MISC SEEINSTR ONE Stop: 08/27/19 01:23 Acetaminophen/Codeine Phosphate (Tylenol #3) 1 tab PO NOW ONE Stop: 08/27/19 01:23 Lidocaine HCl 5.6 ml/ Sodium (Chloride) 55.6 mls @ 333.6 mls/hr IV NOW ONE Stop: 08/26/19 23:10 Last Infusion: 08/26/19 23:44 Dose: 0 mls/hr Documented by: Admin: 08/26/19 23:17 Dose: 333.6 mls/hr Documented by: MEISENDonna Ketorolac Tromethamine (Toradol) 30 mg IV NOW ONE Stop: 08/26/19 23:10 Last Admin: 08/26/19 23:17 Dose: 30 mg Documented by: ALEKSENDonna Ondansetron HCl (Zofran Odt Prepack) 1 bottle MISC SEEINSTR ONE Stop: 08/27/19 01:23 Vital Signs Vital signs: Vital Signs - 8 hr 08/26/19 22:57 Temperature 98.2 F Pulse Rate 73 Respiratory Rate 25 H Blood Pressure 131/75 Pulse Oximetry 99 Medical Decision Making Lab Data Lab results reviewed: Yes I reviewed the patient's lab results. Result diagrams: 08/26/19 22:53 08/26/19 22:53 Labs: Lab Results 08/26/19 08/26/19 08/27/19 Range/Units 22:53 22:53 00:45 WBC 8.7 (4.5-11.0) X10^3/uL RBC 4.78 (4.5-5.9) X10^6/uL Hgb 15.7 (13.5-17.5) g/dL Hct 45.5 (41-53) % MCV 95.1 (80-100) fL MCH 32.8 (26-34) PG MCHC 34.5 (30-36) % RDW 13.2 (11.6-14.8) % Plt Count 329 (150-400) X10^3/uL Neut % (Auto) 62.9 (50-75) % Lymph % (Auto) 23.5 L (25-40) % [place]ady % (Auto) 10.3 (3-14) % Eos % (Auto) 2.6 (2-4) % Baso % (Auto) 0.7 (0-2) % Neut # (Auto) 5500 (2088-9117) /uL Lymph # (Auto) 2000 (9150-6891) /uL [place]ady # (Auto) 900 (0-900) /uL Eos # (Auto) 200 (0-450) /uL Baso # (Auto) 100 (0-100) /uL Sodium 137 (137-145) mmol/L Potassium 3.8 (3.4-5.1) mmol/L Chloride 104 (98-107) mmol/L Carbon Dioxide 25 (22-32) mmol/L BUN 16 (9-20) mg/dL Creatinine 1.00 (0.66-1.25) mg/dL Estimated GFR > 60.0 (>60) mL/min BUN/Creatinine Ratio 16.0 (6-22) Glucose 102 (80-110) mg/dL Calcium 9.1 (8.4-10.2) mg/dL Urine Color Yellow Urine Appearance Sl cloudy Urine pH 6.0 (4.5-8.0) Ur Specific [place] 1.020 (1.000-1.035) Urine Protein Negative (Negative) Urine Glucose (UA) Negative (Negative) g/dL Urine Ketones Negative (NEGATIVE) Urine Occult Blood 3+ H (Negative) Urine Nitrate Negative (Negative) Urine Bilirubin Negative (NEGATIVE) Urine Urobilinogen 0.2 (0.2) E.U./dL Ur Leukocyte Esterase Negative (NEGATIVE) Urine RBC 30-100/hpf H (0-5/HPF) Urine WBC 0-1/hpf (0-5/HPF) Ur Squamous Epith Cells 0-1 /hpf (0-5/HPF) Calcium Oxalate Crystal Moderate H Urine Bacteria Few (2-10) H (None) Urine Mucus 2+ H (Negative) Ur Culture Indicated? Cult not indicated Imaging Data CT scan - abdomen/pelvis: Radiologist's Impression: Proximal left ureteral 4 mm calculus causes moderate left hydroureter and hydronephrosis. There are moderate associated left-sided perinephric inflammatory changes Additional nonobstructing renal present measuring up to 11 mm MDM Narrative Medical decision making narrative: Patient arrives clinical presentation that is consistent with a kidney stone. He has had kidney stones in the past he states this feels like a prior stone. His creatinine is unremarkable. His urine has bacteria in it however he has no symptoms consistent with a urinary tract infection. A urine culture was ordered. We will hold on any antibiotics until the culture results. I did inform the patient that 1 was pending at the time of his discharge we would call him if we needed to start him on antibiotics. Will send home with symptom control. No indication for emergent urologic consultation. I did tell him about the large left-sided kidney stone. He was given return precautions and follow-up instructions. He expressed understanding and agreement with plan. Discharge Plan Departure Patient Disposition: Home Clinical Impression: Renal colic on left side Instructions: DI for Kidney Stones Activity Restrictions/Additional Instructions: Take the medications as directed. Your prescriptions were electronically transmitted to [facility]. Contact your primary provider for follow-up and to discuss any potential further recommendation for urologic referrals. Return to the emergency department for any new or worsening symptoms Prescriptions: New ondansetron 4 mg tablet,disintegrating 4 mg PO Q6H PRN (Reason: nausea and vomiting) Qty: 7 RF: 0 acetaminophen-codeine [Tylenol-Codeine #3] 300-30 mg tablet 1 tab PO Q4-6H PRN (Reason: pain) Qty: 10 RF: 0 No Action prednisone 2.5 mg tablet 7.5 mg PO DAILY Qty: 180 RF: 3 triamcinolone acetonide 0.1 % cream 1 applictn TOP BID Qty: 30 RF: 0 prednisone 1 mg tablet See Rx Instructions PO DAILY Qty: 270 RF: 0 Turmeric Curcumin 4 - 6 cap PO DAILY RF: 0 Referrals: Anam Quiles MD [Primary Care Provider] -
[2019-08-26] MEDS: LIDOCAINE 2% 5.6 ML in SODIUM CHLORIDE 0.9% 50 ML 333.6 ML IV (23:17)
[2019-08-26] MEDS: KETOROLAC 60 MG/2 ML VIAL 30 MG IV (23:17)
[2019-08-26 23:19] LABS: Add Manual Diff / Slide Review NO; Basophils Absolute Auto 100 /uL (0-100); Basophils Percent Auto 0.7 % (0-2); Eosinophils Absolute Auto 200 /uL (0-450); Eosinophils Percent Auto 2.6 % (2-4); Hematocrit 45.5 % (41-53); Hemoglobin 15.7 g/dL (13.5-17.5); Lymphocytes Absolute Auto 2000 /uL (1100-4500); Lymphocytes Percent Auto 23.5 % (25-40); Mean Corpuscular HGB Conc 34.5 % (30-36); Mean Corpuscular Hemoglobin 32.8 PG (26-34); Mean Corpuscular Volume 95.1 fL (80-100); Monocytes Absolute Auto 900 /uL (0-900); Monocytes Percent Auto 10.3 % (3-14); Neutrophils Absolute Auto 5500 /uL (1500-7000); Neutrophils Percent Auto 62.9 % (50-75); Platelet Count 329 X10^3/uL (150-400); Red Blood Cell Count 4.78 X10^6/uL (4.5-5.9); Red Cell Distribution Width 13.2 % (11.6-14.8); White Blood Cell Count 8.7 X10^3/uL (4.5-11.0)
[2019-08-26 23:30] LABS: Blood Urea Nitrogen 16 mg/dL (9-20); Calcium 9.1 mg/dL (8.4-10.2); Carbon Dioxide 25 mmol/L (22-32); Chloride 104 mmol/L (98-107); Estimated Glomerular Filt Rate > 60.0 mL/min (>60); Glucose 102 mg/dL (80-110); HEMOLYSIS < 15 (0-50); Potassium 3.8 mmol/L (3.4-5.1); Sodium 137 mmol/L (137-145)
--- NOTE | 2019-08-27 | DI.CT.S_ITS ---
PROCEDURE: CT KIDNEY URETER BLADDER (KUB) INDICATIONS: L side pain concern for stone TECHNIQUE: Noncontrast 5 mm thick sections acquired from the diaphragms to the symphysis. 5 mm thick coronal and sagittal reformats were then performed. For radiation dose reduction, the following was used: automated exposure control, adjustment of mA and/or kV according to patient size. COMPARISON: None. FINDINGS: Image quality: Excellent. Lung bases: Lung bases are clear. Heart size is normal. Urinary system: Right kidney: No stone or hydronephrosis. Focal cortical thinning, posterior upper pole, consistent with remote insult. Right ureter: Unremarkable Left kidney: 11 mm nonobstructing upper pole stone. Mild hydronephrosis. Perinephric stranding. Left ureter: 4 mm to obstructing proximal ureteral stone at the level of L3-4. Bladder: Thin, smooth wall. No bladder stone. Prostate enlargement. Other solid organs: Liver is normal in size. Gallbladder is unremarkable. Pancreas is normal in contours. Spleen is normal in size. No adrenal nodules. Peritoneum and bowel: Unenhanced bowel loops demonstrate normal wall thickness and caliber. No free fluid or air. Nodes and vessels: No retroperitoneal or mesenteric adenopathy by size criteria. Aorta and inferior vena cava are normal in caliber. Abdominal wall: No ventral hernias. Pelvis: No free pelvic fluid. No inguinal hernias or adenopathy. Bones: No suspicious bony lesions. No vertebral body compression fractures. IMPRESSION: 1. A 4 mm stone obstructs the proximal left ureter resulting in mild left hydronephrosis and stranding. 2. 11 mm nonobstructing left upper pole renal stone. Comment: Final report is concordant with preliminary interpretation provided by [facility]. Dictated by: Kyle Michele M.D. on 08/27/2019 at 7:43 Approved by: Kyle Michele M.D. on 08/27/2019 at 7:47
[2019-08-27 00:58] LABS: Appearance Urine UA SL CLOUDY; Bilirubin Urine UA NEGATIVE (NEGATIVE); Color Urine UA YELLOW; Glucose Urine UA NEGATIVE (Negative); Ketones Urine UA NEGATIVE (NEGATIVE); Leukocyte Esterase Urine UA NEGATIVE (NEGATIVE); Nitrite Urine UA NEGATIVE (Negative); Occult Blood Urine UA 3+ (Negative); Protein Urine UA NEGATIVE (Negative); Urobilinogen Urine UA 0.2 E.U./dL (0.2)
[2019-08-27 01:07] LABS: Bacteria Urine Few (2-10); Calcium Oxalate Crystals Urine Moderate; Mucus Urine 2+ (Negative); RBC Urine 30-100/HPF (0-5/HPF); Squamous Epithelial Cell Urine 0-1 /HPF (0-5/HPF); WBC Urine 0-1/HPF (0-5/HPF)
[2019-08-27 01:08] LABS: Culture Indicated Urine Cult Not Indicated
[2019-08-27] MEDS: ONDANSETRON 4 MG ODT PREPACK 1 BOTTLE MISC (01:37)
[2019-08-27] MEDS: CODEINE/APAP 30/300 PREPACK 1 BOTTLE MISC (01:37)
[2019-08-27] MEDS: CODEINE/ACETAMINOPHEN 30/300 TABLET 1 TAB PO (01:37)
== END 2019-08-27 01:55 | disposition home or self-care (01) ==
PROVIDERS: Emergency Provider Emergency Medicine; PCP Family Medicine
DX: N20.0 Calculus of kidney (principal); Z87.442 Personal history of urinary calculi
CPT/HCPCS: 36415; 74176; 80048; 81001; 85025; 87086; 96365; 96375; 99284; J1885

== ENCOUNTER → 2019-08-30 17:00 | Outpatient (CLI) | payer BC, SELFPAY ==
[2019-08-30 19:05] LABS: Erythrocyte Sedimentation Rate 15 MM/HR (0-15)
== END ==
PROVIDERS: PCP Family Medicine; Referring Provider Family Medicine; Visit Provider Family Medicine
DX: M35.3 Polymyalgia rheumatica (principal)
CPT/HCPCS: 36415; 85651; 86140

== ENCOUNTER → 2019-09-14 15:34 | Outpatient (CLI) | payer BC, SELFPAY ==
[2019-09-14 16:15] LABS: Bacteria Urine None Seen
[2019-09-14 17:06] LABS: Appearance Urine UA CLEAR; Bilirubin Urine UA NEGATIVE (NEGATIVE); Color Urine UA YELLOW; Glucose Urine UA NEGATIVE (Negative); Ketones Urine UA NEGATIVE (NEGATIVE); Leukocyte Esterase Urine UA NEGATIVE (NEGATIVE); Nitrite Urine UA NEGATIVE (Negative); Occult Blood Urine UA 2+ (Negative); Protein Urine UA NEGATIVE (Negative); Specific Gravity Urine UA 1.025 (1.000-1.035); Urobilinogen Urine UA 0.2 E.U./dL (0.2)
[2019-09-14 17:12] LABS: RBC Urine 10-30/HPF (0-5/HPF); WBC Urine 1-5/HPF (0-5/HPF)
[2019-09-14 17:13] LABS: Culture Indicated Urine Cult Not Indicated; Mucus Urine 1+ (Negative); Squamous Epithelial Cell Urine 0-1 /HPF (0-5/HPF); Uric Acid Crystals Urine Moderate
== END ==
PROVIDERS: PCP Family Medicine; Referring Provider Urology; Visit Provider Urology
DX: R31.29 Other microscopic hematuria (principal); N20.0 Calculus of kidney
CPT/HCPCS: 81001

== ENCOUNTER → 2019-09-17 12:30 | Outpatient (CLI) | payer BC, MEDICARE, SELFPAY ==
--- NOTE | 2019-09-17 | DI.CT.S_ITS ---
PROCEDURE: CT KIDNEY URETER BLADDER (KUB) INDICATIONS: Calculus of kidney TECHNIQUE: Noncontrast 5 mm thick sections acquired from the diaphragms to the symphysis. 5 mm thick coronal and sagittal reformats were then performed. For radiation dose reduction, the following was used: automated exposure control, adjustment of mA and/or kV according to patient size. COMPARISON: [facility], CT, CT KIDNEY URETER BLADDER (KUB), 08/27/2019, 0:09. FINDINGS: Image quality: Excellent. Lung bases: Lung bases are clear. Heart size is normal. Urinary system: No definite right nephrolithiasis. 1 cm left renal calculi image 25 series 2. Additional 1 mm left renal calculus image 34 series 2. Mild hydroureteronephrosis related to a 3 mm calculus seen at the left ureterovesical junction on image 74 series 2. No right ureteral catheter is seen. No bladder calculi identified. Chronic right renal cortical scarring. There is mild improvement in the previous left perinephric fat stranding. Other solid organs: Liver is normal in size. Gallbladder negative. Pancreas is normal in contours. Spleen is normal in size. No adrenal nodules. Peritoneum and bowel: Unenhanced bowel loops demonstrate normal wall thickness and caliber. No free fluid or air. Nodes and vessels: No retroperitoneal or mesenteric adenopathy by size criteria. Aorta and inferior vena cava are normal in caliber. Abdominal wall: No ventral hernias. Pelvis: No free pelvic fluid. No inguinal hernias or adenopathy. Bones: No suspicious bony lesions. No vertebral body compression fractures. Multilevel degenerative endplate sclerosis and spurring. Diffuse facet arthropathy. IMPRESSION: Mildly obstructive 3 mm left ureterovesical calculus which has migrated inferiorly since 08/27/19. Mild interval improvement in left perinephric fat stranding. Additional left nephrolithiasis measuring up to 1 cm as before. Dictated by: Dillon Bee M.D. on 09/17/2019 at 13:00 Approved by: Dillon Bee M.D. on 09/17/2019 at 13:06
== END ==
PROVIDERS: PCP Family Medicine; Referring Provider Physician Assistant; Visit Provider Physician Assistant
DX: N20.0 Calculus of kidney (principal)
CPT/HCPCS: 74176

== ENCOUNTER → 2019-09-24 09:06 | Outpatient (CLI) | payer BC, SELFPAY | PROVIDERS: PCP Family Medicine; Referring Provider Family Medicine; Visit Provider Family Medicine | DX: N20.0 Calculus of kidney (principal) | CPT/HCPCS: 82365 ==

== ENCOUNTER → 2019-10-08 12:21 | Outpatient (CLI) | payer BC, SELFPAY ==
[2019-10-08 14:39] LABS: C-Reactive Protein Quant < 0.5 mg/dL (<1.0)
[2019-10-08 14:45] LABS: Erythrocyte Sedimentation Rate 7 MM/HR (0-15)
== END ==
PROVIDERS: PCP Family Medicine; Referring Provider Family Medicine; Visit Provider Family Medicine
DX: M35.3 Polymyalgia rheumatica (principal)
CPT/HCPCS: 36415; 85651; 86140

== ENCOUNTER → 2020-02-01 08:53 | Outpatient (CLI) | payer BC, MEDICARE, SELFPAY ==
[2020-02-01 09:55] LABS: Cholesterol 201 mg/dL (140-199); HDL Cholesterol 50 mg/dL (40-60); LDL Cholesterol Calculated 130 mg/dL (<100); Triglycerides 103 mg/dL (35-150)
[2020-02-01 10:02] LABS: C-Reactive Protein Quant < 0.5 mg/dL (<1.0)
[2020-02-01 10:06] LABS: Erythrocyte Sedimentation Rate 4 MM/HR (0-15)
== END ==
PROVIDERS: PCP Family Medicine; Referring Provider Family Medicine; Visit Provider Family Medicine
DX: E78.5 Hyperlipidemia, unspecified (principal); M35.3 Polymyalgia rheumatica
CPT/HCPCS: 36415; 80061; 85651; 86140

== ENCOUNTER → 2020-09-14 13:35 | Outpatient (CLI) | payer BC, MEDICARE, SELFPAY ==
[2020-09-14 14:13] LABS: COVID19 -Nasal RAPID Negative (Negative)
== END ==
PROVIDERS: PCP Family Medicine; Visit Provider Physician Assistant
DX: Z20.822 Contact with and (suspected) exposure to COVID-19 (principal)
CPT/HCPCS: 87635

== ENCOUNTER → 2020-11-15 12:02 | Outpatient (CLI) | payer BC, SELFPAY ==
--- NOTE | 2020-11-15 | DI.MRI.S_ITS ---
PROCEDURE: MR LUMBAR SPINE WO CON INDICATIONS: Radiculopathy, lumbar region TECHNIQUE: Noncontrast sagittal T1 spin echo and T2 fast echo, sagittal STIR, axial T1 and T2 fast spin echo through the lumbar spine. In cases with scoliosis, additional coronal T2 fast spin echo may be performed. COMPARISON: [facility], , L-SPINE WITHOUT CONTRAST, 11/23/2012, 19:10. FINDINGS: Image quality: Excellent. Alignment and Curvature: No plain films are available for comparison, for numbering purposes. Thus, for the purposes of this examination, 5 lumbar type vertebral bodies will be presumed, as denoted on the montage panel. This should be confirmed and correlated with plain films, prior to any lumbar spinal intervention. There is mild, grade 1 retrolisthesis of L1 on L2, L3 on L4, and L5 on S1. Mild grade 1 anterolisthesis of L4 on L5. Bone Marrow: Marrow is of normal overall signal. No acute vertebral body compression fractures. Mild reactive signal within the endplates adjacent to the L5-S1 intervertebral disc. Minimal reactive signal throughout the remainder of the lumbar and lower thoracic endplates. Left L5-S1 hemilaminotomy. Spinal Cord: Conus medullaris terminates at the L1-L2 disc space level. Visualized cord demonstrates normal signal and size. Paraspinous Soft Tissues: No paravertebral masses. T12-L1: Moderate disc height loss and desiccation. Mild diffuse disc bulge. Mild facet hypertrophy and ligamentum flavum hypertrophy bilaterally. Mild canal stenosis. No foraminal stenosis. No significant change. L1-L2: Moderate disc desiccation. Mild disc height loss and diffuse disc bulge. Mild canal stenosis. Mild bilateral foraminal stenosis. No significant change. L2-L3: Mild disc height loss and desiccation. Mild diffuse disc bulge. Mild facet and ligamentum flavum hypertrophy. Mild epidural lipomatosis. Mild canal stenosis. Mild bilateral foraminal stenosis. No significant change. L3-L4: Mild disc height loss. Moderate disc desiccation. Mild diffuse disc bulge. Mild facet and ligamentum flavum hypertrophy. Mild epidural lipomatosis. Mild canal stenosis. Mild bilateral foraminal stenosis. No significant change. L4-L5: Moderate disc height loss and desiccation. Mild diffuse disc bulge. Moderate facet and ligamentum flavum hypertrophy bilaterally. Mild canal stenosis. Moderate subarticular foraminal stenosis bilaterally. No significant change. L5-S1: Severe disc height loss and desiccation. Moderate diffuse disc bulge. Mild bilateral facet hypertrophy. Mild canal stenosis. Moderate to severe right and moderate left foraminal stenosis. Mild right L5 nerve root compression. No significant change. IMPRESSION: 1. Multilevel degenerative disc and facet disease, as well as ligamentum flavum hypertrophy and epidural lipomatosis. 2. Postsurgical sequelae. . 3. Mild multilevel canal stenosis. 4. Multilevel foraminal stenosis, worst at L5-S1 on the right where there is associated L5 nerve root compression. Recommend correlation with clinical symptoms to ascertain relevance of this finding. Dictated by: Sukh Kelly M.D. on 11/15/2020 at 14:14 Approved by: Sukh Kelly M.D. on 11/15/2020 at 14:18
== END ==
PROVIDERS: PCP Family Medicine; Referring Provider Orthopaedic Surgery; Visit Provider Orthopaedic Surgery
DX: M54.16 Radiculopathy, lumbar region (principal); M51.36 Other intervertebral disc degeneration, lumbar region; M48.061 Spinal stenosis, lumbar region without neurogenic claudication
CPT/HCPCS: 72148

== ENCOUNTER → 2020-11-23 08:33 | Outpatient (CLI) | payer BC, MEDICARE, SELFPAY ==
[2020-11-23 09:20] LABS: Add Manual Diff / Slide Review NO; Basophils Absolute Auto 0 /uL (0-100); Basophils Percent Auto 0.4 % (0-2); Eosinophils Absolute Auto 300 /uL (0-450); Eosinophils Percent Auto 5.3 % (2-4); Hematocrit 45.1 % (41-53); Hemoglobin 15.4 g/dL (13.5-17.5); Lymphocytes Absolute Auto 1900 /uL (1100-4500); Lymphocytes Percent Auto 28.7 % (25-40); Mean Corpuscular HGB Conc 34.1 % (30-36); Mean Corpuscular Hemoglobin 32.7 PG (26-34); Mean Corpuscular Volume 95.9 fL (80-100); Monocytes Absolute Auto 600 /uL (0-900); Monocytes Percent Auto 8.6 % (3-14); Neutrophils Absolute Auto 3700 /uL (1500-7000); Platelet Count 297 X10^3/uL (150-400); Red Cell Distribution Width 14.4 % (11.6-14.8); White Blood Cell Count 6.5 X10^3/uL (4.5-11.0)
[2020-11-23 09:44] LABS: Alanine Aminotransferase 36 IU/L (<50); Albumin 3.7 g/dL (3.5-5.0); Albumin Globulin Ratio 1.3 (1.0-2.8); Alkaline Phosphatase 69 U/L (38-126); Aspartate Aminotransferase 37 IU/L (17-59); BUN Creatinine Ratio 18.8 (6-22); Bilirubin Total 0.8 mg/dL (0.2-1.3); Blood Urea Nitrogen 19 mg/dL (9-20); Carbon Dioxide 24 mmol/L (22-32); Chloride 106 mmol/L (98-107); Cholesterol 238 mg/dL (140-199); Estimated Glomerular Filt Rate > 60.0 mL/min (>60); Globulin 2.8 g/dL (1.7-4.1); Glucose 96 mg/dL (80-110); HDL Cholesterol 71 mg/dL (40-60); HEMOLYSIS < 15 (0-50); LDL Cholesterol Calculated 157 mg/dL (<100); Potassium 3.9 mmol/L (3.4-5.1); Sodium 135 mmol/L (137-145); Total Protein 6.5 g/dL (6.3-8.2); Triglycerides 48 mg/dL (35-150)
[2020-11-23 10:15] LABS: TSH w/ Reflex to FT4 1.82 uIU/mL (0.47-4.68)
== END ==
PROVIDERS: PCP Family Medicine; Referring Provider Family Medicine; Visit Provider Family Medicine
DX: E78.5 Hyperlipidemia, unspecified (principal); Z12.5 Encounter for screening for malignant neoplasm of prostate
CPT/HCPCS: 36415; 80053; 80061; 84443; 85025; G0103

== ENCOUNTER → 2021-07-04 07:17 | Outpatient (CLI) | payer BC, SELFPAY ==
--- NOTE | 2021-07-04 07:19 | DI.RAD.S_ITS ---
PROCEDURE: XR CHEST 2V INDICATIONS: Persistent cough >3 months TECHNIQUE: 2 views of the chest were acquired. COMPARISON: [facility], CR, XR SHOULDER 2+ VIEWS RIGHT, 10/31/2020, 11:03. [facility], CT, CT KIDNEY URETER BLADDER (KUB), 09/17/2019, 12:26. FINDINGS: Surgical changes and devices: None. Lungs and pleura: No consolidation. Minimal prominent interstitial markings. No pleural effusions or pneumothorax. Mediastinum: Mediastinal contours are normal. Heart size is normal. Bones and chest wall: No suspicious bony abnormalities. Calcification in the left upper quadrant likely kidney stone seen on prior CT. IMPRESSION: No consolidation. Minimally prominent interstitial markings. This could be seen in the setting of pulmonary vasculature engorgement, bronchitis, or interstitial lung disease. If clinically indicated high-resolution chest CT could be performed for further evaluation. Follow-up chest x-ray could also be performed. Left kidney stone. Dictated by: Darrian Mccarthy M.D. on 07/04/2021 at 8:02 Approved by: Darrian Mccarthy M.D. on 07/04/2021 at 8:05
[2021-07-04 08:11] LABS: Add Manual Diff / Slide Review NO; Basophils Absolute Auto 0 /uL (0-100); Basophils Percent Auto 0.6 % (0-2); Eosinophils Absolute Auto 400 /uL (0-450); Eosinophils Percent Auto 6.1 % (2-4); Hematocrit 42.2 % (41-53); Hemoglobin 15.1 g/dL (13.5-17.5); Lymphocytes Absolute Auto 2100 /uL (1100-4500); Lymphocytes Percent Auto 35.4 % (25-40); Mean Corpuscular HGB Conc 35.9 % (30-36); Mean Corpuscular Hemoglobin 35.2 PG (26-34); Mean Corpuscular Volume 98.1 fL (80-100); Monocytes Absolute Auto 700 /uL (0-900); Monocytes Percent Auto 10.8 % (3-14); Neutrophils Absolute Auto 2800 /uL (1500-7000); Neutrophils Percent Auto 47.1 % (50-75); Platelet Count 316 X10^3/uL (150-400); Red Cell Distribution Width 13.8 % (11.6-14.8)
== END ==
PROVIDERS: PCP Family Medicine; Referring Provider Physician Assistant; Visit Provider Physician Assistant
DX: R05.3 Chronic cough (principal); N20.0 Calculus of kidney
CPT/HCPCS: 36415; 71046; 85025

== ENCOUNTER → 2021-07-15 13:54 | Outpatient (CLI) | payer BC, MEDICARE, SELFPAY ==
[2021-07-15 15:03] LABS: COVID19 -Nasal RAPID Negative (Negative)
== END ==
PROVIDERS: PCP Family Medicine; Visit Provider Physician Assistant
DX: Z20.822 Contact with and (suspected) exposure to COVID-19 (principal); R05.9 Cough, unspecified
CPT/HCPCS: 87635

== ENCOUNTER 2021-07-16 16:53 | Emergency (ER) | payer BC, MEDICARE, SELFPAY ==
[2021-07-16 17:01] VITALS: BP 137/75; PULSE 69; RESP 22; TEMP 36.6; O2SAT 97
== END 2021-07-16 18:38 | disposition left against medical advice (07) ==
PROVIDERS: Emergency Provider Emergency Medicine; PCP Family Medicine
DX: Z53.21 Procedure and treatment not carried out due to patient leaving prior to being seen by health care provider (principal)
CPT/HCPCS: 99281

== ENCOUNTER → 2021-07-19 15:09 | Outpatient (CLI) | payer BC, MEDICARE, SELFPAY ==
[2021-07-19 15:52] LABS: COVID19 -Nasal RAPID Negative (Negative)
== END ==
PROVIDERS: PCP Family Medicine; Visit Provider Nurse Practitioner Family
DX: R51.9 Headache, unspecified (principal); J02.9 Acute pharyngitis, unspecified
CPT/HCPCS: 87635

== ENCOUNTER → 2021-10-17 12:55 | Outpatient (CLI) | payer BC, SELFPAY ==
[2021-10-17 13:18] LABS: Add Manual Diff / Slide Review NO; Basophils Absolute Auto 0 /uL (0-100); Basophils Percent Auto 0.4 % (0-2); Eosinophils Absolute Auto 100 /uL (0-450); Eosinophils Percent Auto 1.3 % (2-4); Hematocrit 42.1 % (41-53); Hemoglobin 14.1 g/dL (13.5-17.5); Lymphocytes Absolute Auto 1500 /uL (1100-4500); Lymphocytes Percent Auto 21.9 % (25-40); Mean Corpuscular HGB Conc 33.5 % (30-36); Mean Corpuscular Hemoglobin 31.3 PG (26-34); Mean Corpuscular Volume 93.2 fL (80-100); Monocytes Absolute Auto 500 /uL (0-900); Monocytes Percent Auto 7.7 % (3-14); Neutrophils Absolute Auto 4800 /uL (1500-7000); Neutrophils Percent Auto 68.7 % (50-75); Platelet Count 307 X10^3/uL (150-400); Red Blood Cell Count 4.51 X10^6/uL (4.5-5.9); Red Cell Distribution Width 14.8 % (11.6-14.8)
[2021-10-17 13:31] LABS: Alanine Aminotransferase 17 IU/L (<50); Albumin 4.2 g/dL (3.5-5.0); Albumin Globulin Ratio 1.6 (1.0-2.8); Alkaline Phosphatase 60 U/L (38-126); Aspartate Aminotransferase 35 IU/L (17-59); BUN Creatinine Ratio 16.4 (6-22); Bilirubin Total 0.9 mg/dL (0.2-1.3); Blood Urea Nitrogen 20 mg/dL (9-20); Carbon Dioxide 23 mmol/L (22-32); Chloride 109 mmol/L (98-107); Cholesterol 251 mg/dL (140-199); Estimated Glomerular Filt Rate 59.1 mL/min (>60); Globulin 2.6 g/dL (1.7-4.1); Glucose 90 mg/dL (80-110); HDL Cholesterol 68 mg/dL (40-60); HEMOLYSIS 24 (0-50); LDL Cholesterol Calculated 167 mg/dL (<100); Potassium 3.9 mmol/L (3.4-5.1); Sodium 138 mmol/L (137-145); Total Protein 6.8 g/dL (6.3-8.2); Triglycerides 78 mg/dL (35-150)
[2021-10-17 13:33] LABS: Appearance Urine UA CLEAR; Bilirubin Urine UA NEGATIVE (NEGATIVE); Color Urine UA YELLOW; Glucose Urine UA NEGATIVE (Negative); Ketones Urine UA 1+ (NEGATIVE); Leukocyte Esterase Urine UA TRACE (NEGATIVE); Nitrite Urine UA NEGATIVE (Negative); Occult Blood Urine UA NEGATIVE (Negative); Protein Urine UA NEGATIVE (Negative); Specific Gravity Urine UA 1.025 (1.000-1.035); Urobilinogen Urine UA 0.2 E.U./dL (0.2)
[2021-10-17 13:34] LABS: Amorphous Sediment Urine 1+; Bacteria Urine Occasional (0-1); Culture Indicated Urine Specimen Cultured; Mucus Urine 1+ (Negative); RBC Urine None Seen (0-5/HPF); Squamous Epithelial Cell Urine 1-5 /HPF (0-5/HPF); WBC Urine 5-10/HPF (0-5/HPF)
[2021-10-17 13:57] LABS: Prostate Specific Antigen Scrn 2.42 ng/mL (0.1-4.0)
[2021-10-17 14:18] LABS: TSH w/ Reflex to FT4 1.37 uIU/mL (0.47-4.68)
== END ==
PROVIDERS: PCP Family Medicine; Referring Provider Family Medicine; Visit Provider Family Medicine
DX: E78.5 Hyperlipidemia, unspecified (principal); N40.0 Benign prostatic hyperplasia without lower urinary tract symptoms; Z12.5 Encounter for screening for malignant neoplasm of prostate
CPT/HCPCS: 36415; 80053; 80061; 81001; 84443; 85025; 87086; G0103

== ENCOUNTER → 2021-11-07 09:23 | Outpatient (CLI) | payer BC, SELFPAY ==
[2021-11-07 10:33] LABS: COVID19 -Nasal RAPID Negative (Negative)
== END ==
PROVIDERS: PCP Family Medicine; Visit Provider Surgery
DX: Z01.812 Encounter for preprocedural laboratory examination (principal); Z20.822 Contact with and (suspected) exposure to COVID-19
CPT/HCPCS: 87635; C9803

== ENCOUNTER 2021-11-08 14:11 | Day surgery (SDC) | payer BC, SELFPAY ==
[2021-11-08 14:27] VITALS: BMI 22.8
[2021-11-08 14:33] VITALS: BP 117/65; PULSE 59; RESP 16; TEMP 36.2; O2SAT 95
[2021-11-08] MEDS: LACTATED RINGERS 1,000 ML 200 ML IV (14:39)
--- NOTE | 2021-11-08 15:06 | PM.HP.1 ---
History of Present Illness History of Present Illness Date Patient Seen: 11/08/21 Time Patient Seen: 15:06 Chief complaint: SCREENING COLONOSCOPY Narrative: Kameron is a 66-year-old man who is almost 10 years out from his last colonoscopy. He presented with some anorectal pain to Dr. Quiles. Dr. Quiles prescribed some antibiotics suspecting might have prostatitis and his symptoms improved. He reports he does have occasional bleeding per rectum. He denies calista pain. Patient History Medical History Bursitis of right shoulder Coracoid impingement of right shoulder Gastroesophageal reflux disease (11/16/14) GERD (gastroesophageal reflux disease) Head pain Hearing deficit Hearing loss (~1952) Hx of fracture of clavicle Measles PMR (polymyalgia rheumatica) PMR (polymyalgia rheumatica) Rosacea Rotator cuff tendinitis Skin cancer (~1989) Surgical History History of back surgery Status post knee surgery (06/03/16) Family & Social History Family History Brother Age: 68 Diabetes mellitus Grandfather Cancer Grandmother MS (multiple sclerosis) Father No problems noted. Mother No problems noted. Social History: household members spouse Tobacco & Substance use: Smoking Status Never smoker alcohol intake former alcohol intake frequency 0-2 drinks per day Substance Use Type does not use Meds Home Medications and Allergies Allergies Allergy/AdvReac Type Severity Reaction Status Date / Time latex [LATEX] Allergy Mild Verified 11/08/21 14:16 methotrexate Allergy Verified 11/08/21 14:16 Exam Vital Signs (past 8 hours): - 11/08/21 14:33 Temperature 97.2 F L Pulse Rate 59 L Respiratory Rate 16 Blood Pressure 117/65 Pulse Oximetry 95 Oxygen Delivery Method Room Air Const General: healthy appearing Resp Effort & Inspection: normal respiratory effort GI Palpation: soft Assessment & Plan Assessment and plan (1) Colon cancer screening: Status: Acute Plan Will proceed with colon cancer screening. Reviewed the risks and benefits. If all that he has are hemorrhoids we can sit down together in the office at a later date to go over options. COVID-19 COVID-19 status: Negative Result date/Date tested (Pos, Neg/Pending): 11/07/21 Time Spent With Patient Critical Care time: I spent a total of [] minutes of critical care time on this patient's care today; this time is exclusive of procedural time.
[2021-11-08] MEDS: MIDAZOLAM 5 MG/5 ML VIAL IV (15:12)
[2021-11-08] MEDS: fentaNYL 250 MCG/5 ML INJ IV (15:12)
--- NOTE | 2021-11-08 15:41 | PM.OP.COLON ---
Operative Date/Time/Diagnoses Date of procedure: 11/08/21 Time of procedure: 15:41 Pre-op diagnosis: Colon cancer screening Post-op diagnosis: same Procedure & Clinicians Study performed: Colonoscopy Same procedure as scheduled: Yes Surgeon: Jani Cannon Procedure Notes Procedure in detail: Procedure: The patient was brought to the endoscopy suite, placed in left lateral decubitus position. The patient was connected to monitoring devices. A time-out was performed. Sedation was administered. Once the patient was adequately sedated, a digital rectal exam was performed and was normal. The scope was then inserted and advanced to the cecum where the appendiceal orifice was identified and photographed. The scope was then slowly withdrawn over greater than 6 minutes. Mucosa was thoroughly inspected. There were no polyps noted. There was no diverticulosis noted. The scope was retroflexed in the rectum. There was small internal hemorrhoid. The anal rectal region was otherwise normal. The scope was straightened and removed. The patient was awakened and brought to recovery. Versed: 9 mg Fentanyl: 200 mcg EBL: 0 Findings: Normal colon Scope withdrawal time: 7 Sedation minutes: 36 Post-procedure Recommendations: Colonoscopy in 10 years Disposition: PACU
[2021-11-08 15:45] VITALS: BP 109/58; PULSE 69; RESP 14; TEMP 37; O2SAT 97
[2021-11-08 15:50] VITALS: BP 96/61; PULSE 64; RESP 12
[2021-11-08 16:00] VITALS: BP 106/61; PULSE 52; RESP 16; TEMP 36.3
== END 2021-11-08 16:13 | disposition home or self-care (01) ==
PROVIDERS: PCP Family Medicine; Referring Provider Surgery; Visit Provider Surgery
PROC: 0DJD8ZZ Inspection of Lower Intestinal Tract, Via Natural or Artificial Opening Endoscopic (ICD-10-PCS; CPT 45378; principal; 2021-11-08 14:15)
DX: Z12.11 Encounter for screening for malignant neoplasm of colon (principal)
CPT/HCPCS: 45378; 99152; 99153; J2250; J3010

== ENCOUNTER → 2022-03-13 09:13 | Outpatient (CLI) | payer BC, SELFPAY ==
[2022-03-13 09:46] LABS: Appearance Urine UA CLEAR; Bilirubin Urine UA NEGATIVE (NEGATIVE); Color Urine UA YELLOW; Glucose Urine UA NEGATIVE (Negative); Ketones Urine UA NEGATIVE (NEGATIVE); Leukocyte Esterase Urine UA NEGATIVE (NEGATIVE); Nitrite Urine UA NEGATIVE (Negative); Occult Blood Urine UA NEGATIVE (Negative); Protein Urine UA NEGATIVE (Negative); Specific Gravity Urine UA 1.025 (1.000-1.035); Urobilinogen Urine UA 0.2 E.U./dL (0.2)
[2022-03-13 09:52] LABS: Bacteria Urine None Seen; Culture Indicated Urine Cult Not Indicated; RBC Urine None Seen (0-5/HPF); Urine Comments Microscopic Normal; WBC Urine None Seen (0-5/HPF)
== END ==
PROVIDERS: PCP Family Medicine; Referring Provider Family Medicine; Visit Provider Family Medicine
DX: R30.0 Dysuria (principal)
CPT/HCPCS: 81001

== ENCOUNTER → 2022-04-20 08:15 | Outpatient (CLI) | payer BC, SELFPAY ==
[2022-04-20 09:50] LABS: BUN Creatinine Ratio 19.5 (6-22); Blood Urea Nitrogen 22 mg/dL (9-20); Calcium 8.7 mg/dL (8.4-10.2); Carbon Dioxide 24 mmol/L (22-32); Chloride 106 mmol/L (98-107); Estimated Glomerular Filt Rate > 60 mL/min (>60); Glucose 93 mg/dL (80-110); HEMOLYSIS < 15 (0-50); Potassium 4.4 mmol/L (3.4-5.1); Sodium 136 mmol/L (137-145)
== END ==
PROVIDERS: PCP Family Medicine; Referring Provider Family Medicine; Visit Provider Family Medicine
DX: Z01.812 Encounter for preprocedural laboratory examination (principal)
CPT/HCPCS: 36415; 80048

== ENCOUNTER → 2022-04-22 09:24 | Outpatient (CLI) | payer BC, SELFPAY ==
--- NOTE | 2022-04-22 09:25 | DI.CT.S_ITS ---
PROCEDURE: CT ABDOMEN PELVIS W CON INDICATIONS: groin perineal pain TECHNIQUE: After the administration of oral and IV contrast, axial sections were acquired from the lung bases to the pubic symphysis. Coronal and sagittal reformats were performed. For radiation dose reduction, the following was used: automated exposure control, adjustment of mA and/or kV according to patient size. COMPARISON: None. FINDINGS: Image quality: Excellent. Lung bases: Mild bibasilar dependent atelectasis are seen posteriorly.. Heart: No significant findings. ABDOMEN: Liver: Unremarkable. Gallbladder: Within normal limits. Biliary ducts: Unremarkable. Pancreas: Unremarkable. Spleen: Unremarkable. Adrenal Glands: Unremarkable. Kidneys and Ureters: Bilateral kidneys are normal in size. 6 x 10 mm nonobstructing stone in upper to midpole left kidney is seen and measures 1000 Hounsfield unit in density. No hydronephrosis or hydroureter. Stomach and Bowel: Stomach, small bowel loops, and colon are unremarkable. No abscess collection. Peritoneum: No abnormal intraperitoneal fluid. No free air. Ventral Wall: No hernia. Abdominal Nodes: No retroperitoneal or mesenteric adenopathy by size criteria. Vessels: Aorta and inferior vena cava are normal in size. PELVIS: Pelvic Organs: Mildly enlarged prostate gland with lobulated contour and mass effect on floor of urinary bladder is seen. Multiple coarse calcifications are noted scattered in central and periphery of prostate gland. Bladder: There is mild diffuse bladder wall thickening, no discrete bladder wall mass. Pelvic Nodes: No enlarged lymph nodes. Miscellaneous: No inguinal hernias are seen. Bones: No suspicious bony lesion. No acute vertebral body compression fracture. Degenerative disc disease at L4-5 and L5-S1 levels are seen with loss of disc height and vacuum disc phenomenon. IMPRESSION: 1. Enlarged prostate gland containing multiple calcifications. Mass effect on the adjacent urinary bladder is also noted. Diffuse bladder wall thickening, no discrete bladder wall mass. Finding may indicate infectious or inflammatory process involving urinary bladder and prostate gland given patient's history. No pelvic abscess collection. 2. Nonobstructing stone in left kidney. No hydronephrosis or hydroureter. 3. No bowel obstruction or abnormal bowel wall thickening. No free fluid or free air. 4. Degenerative disc disease in lower lumbar spine. No acute vertebral body compression fracture. Dictated by: Graham Estevez M.D. on 04/22/2022 at 13:17 Approved by: Graham Estevez M.D. on 04/22/2022 at 13:43
== END ==
PROVIDERS: PCP Family Medicine; Referring Provider Family Medicine; Visit Provider Family Medicine
DX: N40.0 Benign prostatic hyperplasia without lower urinary tract symptoms (principal); R10.30 Lower abdominal pain, unspecified; N20.0 Calculus of kidney; M51.36 Other intervertebral disc degeneration, lumbar region
CPT/HCPCS: 74177; Q9967

== ENCOUNTER → 2023-02-13 07:58 | Outpatient (CLI) | payer BC, SELFPAY ==
[2023-02-13 09:21] LABS: Alanine Aminotransferase 23 IU/L (<50); Albumin 3.9 g/dL (3.5-5.0); Albumin Globulin Ratio 1.6 (1.0-2.8); Alkaline Phosphatase 65 U/L (38-126); Aspartate Aminotransferase 32 IU/L (17-59); BUN Creatinine Ratio 20.4 (6-22); Bilirubin Total 0.9 mg/dL (0.2-1.3); Blood Urea Nitrogen 23 mg/dL (9-20); Calcium 8.9 mg/dL (8.4-10.2); Carbon Dioxide 24 mmol/L (22-32); Chloride 105 mmol/L (98-107); Cholesterol 247 mg/dL (140-199); Estimated Glomerular Filt Rate > 60 mL/min (>60); Globulin 2.5 g/dL (1.7-4.1); Glucose 89 mg/dL (80-110); HDL Cholesterol 77 mg/dL (40-60); HEMOLYSIS < 15 (0-50); LDL Cholesterol Calculated 158 mg/dL (<100); Potassium 4.3 mmol/L (3.4-5.1); Sodium 136 mmol/L (137-145); Total Protein 6.4 g/dL (6.3-8.2); Triglycerides 61 mg/dL (35-150)
[2023-02-13 09:35] LABS: Add Manual Diff / Slide Review NO; Basophils Absolute Auto 100 /uL (0-100); Eosinophils Absolute Auto 400 /uL (0-450); Eosinophils Percent Auto 5.7 % (2-4); Hematocrit 44.2 % (41-53); Hemoglobin 14.9 g/dL (13.5-17.5); Lymphocytes Absolute Auto 2000 /uL (1100-4500); Lymphocytes Percent Auto 30.4 % (25-40); Mean Corpuscular HGB Conc 33.8 % (30-36); Mean Corpuscular Hemoglobin 32.3 PG (26-34); Mean Corpuscular Volume 95.6 fL (80-100); Monocytes Absolute Auto 700 /uL (0-900); Monocytes Percent Auto 10.4 % (3-14); Neutrophils Absolute Auto 3400 /uL (1500-7000); Neutrophils Percent Auto 52.5 % (50-75); Platelet Count 332 X10^3/uL (150-400); Red Blood Cell Count 4.62 X10^6/uL (4.5-5.9); Red Cell Distribution Width 14.2 % (11.6-14.8); White Blood Cell Count 6.5 X10^3/uL (4.5-11.0)
[2023-02-13 09:47] LABS: Prostate Specific Antigen 2.69 ng/mL (0.10-4.00)
[2023-02-13 09:48] LABS: TSH w/ Reflex to FT4 1.59 uIU/mL (0.47-4.68)
== END ==
PROVIDERS: PCP Family Medicine; Referring Provider Family Medicine; Visit Provider Family Medicine
DX: E78.2 Mixed hyperlipidemia (principal); N40.0 Benign prostatic hyperplasia without lower urinary tract symptoms
CPT/HCPCS: 36415; 80053; 80061; 84153; 84443; 85025

== ENCOUNTER → 2023-07-28 09:57 | Outpatient (CLI) | payer BC, SELFPAY ==
--- NOTE | 2023-07-28 09:58 | DI.RAD.S_ITS ---
PROCEDURE: XR CHEST 2V INDICATIONS: cough TECHNIQUE: 2 views of the chest were acquired. COMPARISON: [facility], CR, XR CHEST 2V, 07/04/2021, 7:25. FINDINGS: Surgical changes and devices: None. Lungs and pleura: Mild increased interstitial prominence. Mediastinum: Mediastinal contours are normal. Heart size is normal. Bones and chest wall: No suspicious bony abnormalities. Soft tissues appear unremarkable. IMPRESSION: Mild increased interstitial prominence possibly suspected to be related to edema. Dictated by: Janelle Germain M.D. on 07/28/2023 at 22:33 Approved by: Janelle Germain M.D. on 07/28/2023 at 22:33
== END ==
PROVIDERS: PCP Family Medicine; Referring Provider Nurse Practitioner Family; Visit Provider Nurse Practitioner Family
DX: R05.9 Cough, unspecified (principal)
CPT/HCPCS: 71046

== ENCOUNTER → 2023-10-27 17:34 | Outpatient (ROUT) | payer BC, SELFPAY | PROVIDERS: PCP Family Medicine; Visit Provider Family Medicine | DX: B89 Unspecified parasitic disease (principal) | CPT/HCPCS: 87169 ==

== ENCOUNTER → 2024-05-05 16:54 | Outpatient (CLI) | payer BC, SELFPAY ==
[2024-05-05 17:33] LABS: Alanine Aminotransferase 52 IU/L (<50); Albumin 4.2 g/dL (3.5-5.0); Albumin Globulin Ratio 1.6 (1.0-2.8); Alkaline Phosphatase 71 U/L (38-126); Aspartate Aminotransferase 50 IU/L (17-59); Bilirubin Total 0.5 mg/dL (0.2-1.3); Blood Urea Nitrogen 26 mg/dL (9-20); Calcium 9.3 mg/dL (8.4-10.2); Carbon Dioxide 23 mmol/L (22-32); Chloride 107 mmol/L (98-107); Cholesterol 255 mg/dL (140-199); Estimated Glomerular Filt Rate > 60 mL/min (>60); Globulin 2.7 g/dL (1.7-4.1); Glucose 93 mg/dL (80-110); HDL Cholesterol 72 mg/dL (40-60); HEMOLYSIS < 15 (0-50); LDL Cholesterol Calculated 165 mg/dL (<100); Potassium 4.5 mmol/L (3.4-5.1); Sodium 136 mmol/L (137-145); Total Protein 6.9 g/dL (6.3-8.2); Triglycerides 89 mg/dL (35-150)
[2024-05-05 18:04] LABS: Prostate Specific Antigen Scrn 2.67 ng/mL (0.1-4.0)
[2024-05-05 18:30] LABS: Add Manual Diff / Slide Review NO; Basophils Absolute Auto 100 /uL (0-100); Basophils Percent Auto 0.6 % (0-2); Eosinophils Absolute Auto 200 /uL (0-450); Eosinophils Percent Auto 2.6 % (2-4); Lymphocytes Absolute Auto 1700 /uL (1100-4500); Mean Corpuscular HGB Conc 33.4 % (30-36); Mean Corpuscular Hemoglobin 32.4 PG (26-34); Monocytes Absolute Auto 800 /uL (0-900); Monocytes Percent Auto 9.5 % (3-14); Neutrophils Absolute Auto 5600 /uL (1500-7000); Neutrophils Percent Auto 67.3 % (50-75); Platelet Count 322 X10^3/uL (150-400); Red Blood Cell Count 4.64 X10^6/uL (4.5-5.9); Red Cell Distribution Width 14.1 % (11.6-14.8); White Blood Cell Count 8.4 X10^3/uL (4.5-11.0)
== END ==
LOC: LAB 16:55
PROVIDERS: PCP Family Medicine; Referring Provider Family Medicine; Visit Provider Family Medicine
DX: Z12.5 Encounter for screening for malignant neoplasm of prostate (principal); E78.2 Mixed hyperlipidemia
CPT/HCPCS: 36415; 80053; 80061; 85025; G0103

== ENCOUNTER → 2025-05-02 08:31 | Outpatient (CLI) | payer BC, SELFPAY ==
[2025-05-02 10:01] LABS: Add Manual Diff / Slide Review NO; Hematocrit 46.0 % (41-53); Hemoglobin 15.4 g/dL (13.5-17.5); Lymphocytes Absolute Auto 2300 /uL (1100-4500); Mean Corpuscular HGB Conc 33.5 % (30-36); Mean Corpuscular Hemoglobin 32.0 PG (26-34); Mean Corpuscular Volume 95.4 fL (80-100); Platelet Count 328 X10^3/uL (150-400)
[2025-05-02 10:06] LABS: Blood Urea Nitrogen 23 mg/dL (9-20); Carbon Dioxide 24 mmol/L (22-32); Chloride 107 mmol/L (98-107); HEMOLYSIS < 15 (0-50); Potassium 4.1 mmol/L (3.4-5.1); Sodium 137 mmol/L (137-145)
[2025-05-02 10:07] LABS: Alanine Aminotransferase 20 IU/L (<50); Albumin 4.0 g/dL (3.5-5.0); Albumin Globulin Ratio 1.5 (1.0-2.8); Alkaline Phosphatase 65 U/L (38-126); Calcium 9.3 mg/dL (8.4-10.2); Cholesterol 259 mg/dL (140-199); Estimated Glomerular Filt Rate > 60 mL/min (>60); Globulin 2.6 g/dL (1.7-4.1); Glucose 96 mg/dL (70-99); HDL Cholesterol 74 mg/dL (40-60); Total Protein 6.6 g/dL (6.3-8.2); Triglycerides 70 mg/dL (35-150)
== END ==
PROVIDERS: PCP Family Medicine; Referring Provider Family Medicine; Visit Provider Family Medicine
DX: E78.2 Mixed hyperlipidemia (principal); N40.1 Benign prostatic hyperplasia with lower urinary tract symptoms; R35.1 Nocturia; Z12.5 Encounter for screening for malignant neoplasm of prostate
CPT/HCPCS: 36415; 80053; 80061; 84403; 85025; G0103

== ENCOUNTER → 2025-07-01 09:35 | Outpatient (CLI) | payer BC, SELFPAY ==
--- NOTE | 2025-07-01 09:38 | DI.RAD.S_ITS ---
PROCEDURE: XR CERVICAL SPINE 2V OR 3V INDICATIONS: neck pain with rt ridiculopathy TECHNIQUE: 3 view(s) of the cervical spine were acquired. COMPARISON: None. FINDINGS: Bones: No fractures or dislocations to the T1 level. The lateral masses of C1 appear intact on the odontoid view. No suspicious bony lesions. No scoliosis or listhesis. Moderate C5-6 and marked C6-7 disc narrowing. Mild multilevel facet arthropathy. Soft tissues: No prevertebral soft tissue swelling. IMPRESSION: No displaced fracture or traumatic subluxation. Dictated by: Rachel Powell M.D. on 07/03/2025 at 19:00 Approved by: Rachel Powell M.D. on 07/03/2025 at 19:01
== END ==
LOC: RAD 09:36
PROVIDERS: Family Provider Family Medicine; PCP Family Medicine; Referring Provider Family Medicine; Visit Provider Family Medicine
DX: M47.22 Other spondylosis with radiculopathy, cervical region (principal); M50.90 Cervical disc disorder, unspecified, unspecified cervical region
CPT/HCPCS: 72040